=== PATIENT | female | born 1955 | race Caucasian/White ===

== ENCOUNTER 2018-01-30 17:45 | Observation (INO) ==
--- NOTE | 2018-01-30 18:19 | ED ---
HPI General Chief Complaint: Altered Mental Status Stated Complaint: Poss AMS Time Seen by Provider: 01/30/18 18:10 Source: EMS Mode of arrival: EMS Limitations: altered mental status History of Present Illness HPI narrative: 63-year-old female presents from rehab facility where she was found altered with an empty bottle of 0.5 mg of Ativan that was just filled on January 15. Patient nonverbal and can provide me with no history on initial examination. History is obtained from EMS and nursing staff Related Data Home Medications Medication Instructions Recorded Confirmed aspirin 81 mg PO DAILY 01/30/18 01/30/18 folic acid 1 mg PO DAILY 01/30/18 01/30/18 pantoprazole 40 mg PO DAILY 01/30/18 01/30/18 quetiapine [Seroquel] 100 mg PO HS 01/30/18 01/30/18 rifaximin [Xifaxan] 550 mg PO BID 01/30/18 01/30/18 sertraline 100 mg PO DAILY 01/30/18 01/30/18 Previous Rx's Medication Instructions Recorded losartan 50 mg PO DAILY #30 tab 02/02/18 tntyxikf-erar-EX-calcium-mins 1 tab PO DAILY #30 tab 02/02/18 [Thera M Plus (ferrous fumarat)] thiamine HCl (vitamin B1) 100 mg PO DAILY #30 tab 02/02/18 Allergies Allergy/AdvReac Type Severity Reaction Status Date / Time alprazolam [From Xanax] Allergy UNKNOWN Verified 01/30/18 18:11 pregabalin [From Lyrica] Allergy UNKNOWN Verified 01/30/18 18:11 Review of Systems ROS Unobtainable ROS Unobtainable: unobtainable due to mental status PMFSH History History Provided By: Patient (Unable to obtain any history) Social History Social History Substance History: No History of Abuse Second Hand Smoke Exposure: Yes Smoking Status: Current every day smoker Tobacco Type: Cigarettes How Often Do You Have a Drink Containing Alcohol: Unable to Obtain Recent Travel in [place] within the Last 8 Weeks: No Recent Out of Country Travel within the Last 8 Weeks: No Exam Narrative Exam Narrative: GENERAL: 63 y/o female who opens eyes SKIN: Focused skin assessment warm/dry. HEAD: Atraumatic. Normocephalic. EYES: Pupils equal and round. No scleral icterus. No injection or drainage. ENT: No nasal bleeding or discharge. Mucous membranes pink and moist. NECK: Trachea midline. CARDIOVASCULAR: Regular rate and rhythm. RESPIRATORY: No accessory muscle use. Clear to auscultation. Breath sounds equal bilaterally. GASTROINTESTINAL: Abdomen soft, nondistended. MUSCULOSKELETAL: No obvious deformities. No clubbing. No cyanosis. NEUROLOGICAL: Opens eyes to voice, initially unresponsive and foaming at the mouth, nonverbal Course Initial Documented Vital Signs Temperature 98 F 01/30/18 18:00 Pulse Rate 92 H 01/30/18 18:00 Respiratory Rate 18 01/30/18 18:00 Blood Pressure 232/100 H 01/30/18 18:00 Pulse Oximetry 92 L 01/30/18 18:00 Last Documented Vital Signs Temperature 98.3 F 02/02/18 08:00 Pulse Rate 71 02/02/18 08:00 Respiratory Rate 14 02/02/18 08:00 Blood Pressure 155/79 H 02/02/18 08:00 Pulse Oximetry 93 L 02/02/18 10:53 Sign Out Sign Out Data: Patient Sign Out occurred on 01/30/18 at 20:29. Patient's care was discussed, and care was transferred from Yulissa Rodriguez MD to Kesha Gonzalez. Sign Out Comment: follow workup and admit Last updated by Yulissa Rodriguez MD at 01/30/18 19:25 Post-Handoff Eval: 63-year-old female was brought to the emergency room by EMS from the longterm after she was found poorly responsive. There were 2 missing bottles of Lorazepam and tizanidine next to her bed. She was seen by the previous ER for for altered mental status. There was a witnessed seizure by the previous ER physician at approximately 6 PM at which 1 mg of Ativan was given. Signout was to follow-up on the blood test result and CAT scan and admission. Poison control was contacted and they recommended close monitoring. At 7 PM when I went to see the patient she was awake and sitting up but verbally she was not making much sense and not good train of thoughts. She was also having some ataxic movement of her face with grimacing. She recognized some objects that I showed to her and named them and was unable to recognize some of the others. There was some visual hallucinations including her saying that she could see some green fingers pointing at the television. Blood test results are back and she has some leukopenia but otherwise within normal limit. Patient does have a significant history of alcohol dependence with abstinence for past 9 days. My concern is DT versus Wernicke's encephalopathy. I have given her a dose of thiamine. I have ordered an MRI and an MRA of the brain. Patient will require admission. Awaiting for the hospitalist to call back. Medical Decision Making MDM Narrative Medical decision making narrative: Patient arrived unresponsive. But I stayed in the room with the patient she started to come around and stated her name but would not provide me any other history. Patient is still very confused and history is significantly limited. Currently protecting airway with eyes open and very limited speech. Medical Screen Exam Complete: Yes Emergency Medical Condition: Yes Differential Diagnosis Differential Diagnosis: Postictal, electrolyte abnormality, UTI, overdose Lab Data Result diagrams: 01/31/18 05:02 02/01/18 07:34 Lab Results 01/30/18 01/30/18 01/30/18 Range/Units 18:50 18:50 18:50 WBC 3.2 L (4.0-11.0) th/mm3 RBC 3.75 L (4.00-5.30) mil/mm3 Hgb 10.5 L (11.6-15.3) gm/dL Hct 31.1 L (35.0-46.0) % MCV 82.9 (80.0-100.0) fL MCH 28.1 (27.0-34.0) pg MCHC 33.8 (32.0-36.0) % RDW 15.8 (11.6-17.2) % Plt Count 55 L (150-450) th/mm3 MPV 8.7 (7.0-11.0) fL Prelim Diff (Auto) Slide review pending Neut % (Auto) 79.4 H (16.0-70.0) % Lymph % (Auto) 10.9 (9.0-44.0) % [place] % (Auto) 7.7 (0.0-8.0) % Eos % (Auto) 1.5 (0.0-4.0) % Baso % (Auto) 0.5 (0.0-2.0) % Neut # (Auto) 2.5 (1.8-7.7) th/mm3 Lymph # (Auto) 0.4 L (1.0-4.8) th/mm3 [place] # (Auto) 0.2 (0.0-0.9) th/mm3 Eos # (Auto) 0.0 (0.0-0.4) th/mm3 Baso # (Auto) 0.0 (0.0-0.2) th/mm3 WBC Differential . Diff Scan Auto diff confirmed Differential Comment . Platelet Estimate Low L (Normal) Platelet Morphology Normal (Normal) Ovalocytes 2+ H (None) PT 12.0 H (9.8-11.6) sec INR 1.2 Ratio APTT 26.1 (23.4-31.7) sec Sodium (136-145) meq/L Potassium (3.5-5.1) meq/L Chloride (98-107) meq/L Carbon Dioxide (21.0-32.0) meq/L Anion Gap (5-15) meq/L BUN (7-18) mg/dL Creatinine (0.50-1.00) mg/dL Estimated GFR (>89) mL/min POC Glucose (68-110) mg/dl Random Glucose (74-106) mg/dL Calcium (8.5-10.1) mg/dL Phosphorus (2.5-4.9) mg/dL Magnesium (1.5-2.5) mg/dL Total Bilirubin (0.2-1.0) mg/dL AST (15-37) U/L ALT (10-53) U/L Alkaline Phosphatase (45-117) U/L Ammonia (11-32) mcmol/L Total Creatine Kinase (26-192) U/L Troponin I (0.02-0.05) ng/mL Total Protein (6.4-8.2) g/dL Albumin (3.4-5.0) g/dL Salicylates (2.8-20.0) mg/dL Acetaminophen (10.0-30.0) mcg/mL Serum Alcohol Cancelled 01/30/18 01/30/18 01/30/18 Range/Units 18:50 18:50 18:50 WBC (4.0-11.0) th/mm3 RBC (4.00-5.30) mil/mm3 Hgb (11.6-15.3) gm/dL Hct (35.0-46.0) % MCV (80.0-100.0) fL MCH (27.0-34.0) pg MCHC (32.0-36.0) % RDW (11.6-17.2) % Plt Count (150-450) th/mm3 MPV (7.0-11.0) fL Prelim Diff (Auto) Neut % (Auto) (16.0-70.0) % Lymph % (Auto) (9.0-44.0) % [place] % (Auto) (0.0-8.0) % Eos % (Auto) (0.0-4.0) % Baso % (Auto) (0.0-2.0) % Neut # (Auto) (1.8-7.7) th/mm3 Lymph # (Auto) (1.0-4.8) th/mm3 [place] # (Auto) (0.0-0.9) th/mm3 Eos # (Auto) (0.0-0.4) th/mm3 Baso # (Auto) (0.0-0.2) th/mm3 WBC Differential Diff Scan Differential Comment Platelet Estimate (Normal) Platelet Morphology (Normal) Ovalocytes (None) PT (9.8-11.6) sec INR Ratio APTT (23.4-31.7) sec Sodium 141 (136-145) meq/L Potassium 3.2 L (3.5-5.1) meq/L Chloride 106 (98-107) meq/L Carbon Dioxide 26.0 (21.0-32.0) meq/L Anion Gap 9 (5-15) meq/L BUN 9 (7-18) mg/dL Creatinine 0.78 (0.50-1.00) mg/dL Estimated GFR 74 L (>89) mL/min POC Glucose (68-110) mg/dl Random Glucose 91 (74-106) mg/dL Calcium 8.6 (8.5-10.1) mg/dL Phosphorus (2.5-4.9) mg/dL Magnesium 1.7 (1.5-2.5) mg/dL Total Bilirubin 1.0 (0.2-1.0) mg/dL AST 41 H (15-37) U/L ALT 26 (10-53) U/L Alkaline Phosphatase 118 H (45-117) U/L Ammonia Less than 10 L (11-32) mcmol/L Total Creatine Kinase 117 (26-192) U/L Troponin I 0.03 (0.02-0.05) ng/mL Total Protein 7.1 (6.4-8.2) g/dL Albumin 3.5 (3.4-5.0) g/dL Salicylates (2.8-20.0) mg/dL Acetaminophen Less than 2.0 L Cancelled (10.0-30.0) mcg/mL Serum Alcohol Less than 3 01/30/18 01/31/18 01/31/18 Range/Units 18:50 05:02 05:02 WBC 6.1 D (4.0-11.0) th/mm3 RBC 3.91 L (4.00-5.30) mil/mm3 Hgb 10.9 L (11.6-15.3) gm/dL Hct 32.5 L (35.0-46.0) % MCV 83.3 (80.0-100.0) fL MCH 28.0 (27.0-34.0) pg MCHC 33.6 (32.0-36.0) % RDW 16.1 (11.6-17.2) % Plt Count 82 L D (150-450) th/mm3 MPV 8.4 (7.0-11.0) fL Prelim Diff (Auto) Slide review pending Neut % (Auto) 77.6 H (16.0-70.0) % Lymph % (Auto) 13.7 (9.0-44.0) % [place] % (Auto) 6.8 (0.0-8.0) % Eos % (Auto) 1.0 (0.0-4.0) % Baso % (Auto) 0.9 (0.0-2.0) % Neut # (Auto) 4.7 (1.8-7.7) th/mm3 Lymph # (Auto) 0.8 L (1.0-4.8) th/mm3 [place] # (Auto) 0.4 (0.0-0.9) th/mm3 Eos # (Auto) 0.1 (0.0-0.4) th/mm3 Baso # (Auto) 0.1 (0.0-0.2) th/mm3 WBC Differential . Diff Scan Auto diff confirmed Differential Comment . Platelet Estimate Low L (Normal) Platelet Morphology Normal (Normal) Ovalocytes 2+ H (None) PT (9.8-11.6) sec INR Ratio APTT (23.4-31.7) sec Sodium 139 (136-145) meq/L Potassium 3.3 L (3.5-5.1) meq/L Chloride 105 (98-107) meq/L Carbon Dioxide 24.8 (21.0-32.0) meq/L Anion Gap 9 (5-15) meq/L BUN 6 L (7-18) mg/dL Creatinine 0.66 (0.50-1.00) mg/dL Estimated GFR Greater than 89 (>89) mL/min POC Glucose (68-110) mg/dl Random Glucose 86 (74-106) mg/dL Calcium 8.5 (8.5-10.1) mg/dL Phosphorus (2.5-4.9) mg/dL Magnesium (1.5-2.5) mg/dL Total Bilirubin 1.0 (0.2-1.0) mg/dL AST 44 H (15-37) U/L ALT 27 (10-53) U/L Alkaline Phosphatase 120 H (45-117) U/L Ammonia (11-32) mcmol/L Total Creatine Kinase (26-192) U/L Troponin I (0.02-0.05) ng/mL Total Protein 7.3 (6.4-8.2) g/dL Albumin 3.6 (3.4-5.0) g/dL Salicylates Less than 1.7 L (2.8-20.0) mg/dL Acetaminophen (10.0-30.0) mcg/mL Serum Alcohol 01/31/18 01/31/18 02/01/18 Range/Units 06:40 16:44 07:34 WBC (4.0-11.0) th/mm3 RBC (4.00-5.30) mil/mm3 Hgb (11.6-15.3) gm/dL Hct (35.0-46.0) % MCV (80.0-100.0) fL MCH (27.0-34.0) pg MCHC (32.0-36.0) % RDW (11.6-17.2) % Plt Count (150-450) th/mm3 MPV (7.0-11.0) fL Prelim Diff (Auto) Neut % (Auto) (16.0-70.0) % Lymph % (Auto) (9.0-44.0) % [place] % (Auto) (0.0-8.0) % Eos % (Auto) (0.0-4.0) % Baso % (Auto) (0.0-2.0) % Neut # (Auto) (1.8-7.7) th/mm3 Lymph # (Auto) (1.0-4.8) th/mm3 [place] # (Auto) (0.0-0.9) th/mm3 Eos # (Auto) (0.0-0.4) th/mm3 Baso # (Auto) (0.0-0.2) th/mm3 WBC Differential Diff Scan Differential Comment Platelet Estimate (Normal) Platelet Morphology (Normal) Ovalocytes (None) PT (9.8-11.6) sec INR Ratio APTT (23.4-31.7) sec Sodium 141 (136-145) meq/L Potassium 3.3 L (3.5-5.1) meq/L Chloride 105 (98-107) meq/L Carbon Dioxide 25.1 (21.0-32.0) meq/L Anion Gap 11 (5-15) meq/L BUN 8 (7-18) mg/dL Creatinine 0.68 (0.50-1.00) mg/dL Estimated GFR 87 L (>89) mL/min POC Glucose 88 114 H (68-110) mg/dl Random Glucose 86 (74-106) mg/dL Calcium 9.1 (8.5-10.1) mg/dL Phosphorus 3.2 (2.5-4.9) mg/dL Magnesium 2.0 (1.5-2.5) mg/dL Total Bilirubin (0.2-1.0) mg/dL AST (15-37) U/L ALT (10-53) U/L Alkaline Phosphatase (45-117) U/L Ammonia (11-32) mcmol/L Total Creatine Kinase (26-192) U/L Troponin I (0.02-0.05) ng/mL Total Protein (6.4-8.2) g/dL Albumin (3.4-5.0) g/dL Salicylates (2.8-20.0) mg/dL Acetaminophen (10.0-30.0) mcg/mL Serum Alcohol Imaging Data Radiologist's impression: Head CTA 01/30/18 00:00 CONCLUSION: 1. Negative CTA Head. In particular, no anterior communicating artery aneurysm as questioned on the MRI. . Chest X-Ray 01/30/18 18:10 CONCLUSION: No evidence of acute cardiopulmonary disease. Head CT 01/30/18 18:10 CONCLUSION: Negative noncontrast head CT. . Head MRI 01/30/18 19:38 CONCLUSION: 1. No bleed, infarct or other acute intracranial abnormality. 2. Very mild chronic white matter changes. Head MRA 01/30/18 19:38 CONCLUSION: 1. No thrombosis or significant stenotic disease. 2. Mild intracranial atherosclerosis. 3. 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 No bleed demonstrated on the head CT or MRI done earlier tonight. Nonemergent CT angiogram of the head suggested if felt clinically indicated. Discharge Plan Discharge Disposition Patient Disposition: 30 Still Patient Discharge Condition Condition: Stable Discharge Order Discharge Orders: Discharge Order (Routine); Ordered 02/02/18 Ordered By: Isabelle Mcclellan Discharge Details Anticipated Discharge Date: 02/02/18 Physicians Team ED Provider: Kesha Gonzalez Primary Care Provider: UNKNOWN, Attending Provider: Isabelle Mcclellan Other Providers: Sai Camacho ; [facility],Insurance ; [facility] Status ED Status: Left Department Discharge Information Discharge Date/Time: 01/31/18 05:26
--- NOTE | 2018-01-30 18:54 | CT ---
EXAM DATE: 01/30/2018 6:50 PM EST AGE/SEX: 63 years / Female INDICATIONS: Altered mental status. CLINICAL DATA: This is the patient's initial encounter. Patient reports that signs and symptoms have been present for 1 day and indicates a pain score of Nonresponsive. MEDICAL/SURGICAL HISTORY: Non-responsive. Non-responsive. RADIATION DOSE: 28.48 CTDI (mGy) COMPARISON: No prior exams available for comparison. TECHNIQUE: CT of the head without contrast. Using automated exposure control and adjustment of the mA and/or kV according to patient size, radiation dose was kept as low as reasonably achievable to ob tain optimal diagnostic quality images. DICOM format image data is available electronically for revi ew and comparison. FINDINGS: Cerebrum: The ventricles are normal for age. No evidence of midline shift, mass lesion, hemorrhage or acute infarction. No extraaxial fluid collections are seen. Posterior Fossa: The cerebellum and brainstem are intact. The 4th ventricle is midline. The cerebe llopontine angle is unremarkable. Extracranial: The visualized portion of the orbits is intact. Skull: The calvaria is intact. No evidence of skull fracture. CONCLUSION: Negative noncontrast head CT. . Electronically signed by: Shashi Cho MD 01/30/2018 6:52 PM EST
--- NOTE | 2018-01-30 19:00 | XR ---
EXAM DATE: 01/30/2018 6:57 PM EST AGE/SEX: 63 years / Female INDICATIONS: Chest pain. Palpitations. CLINICAL DATA: This is the patient's initial encounter. Patient reports that signs and symptoms have been present for 1 day and indicates a pain score of 2/10. MEDICAL/SURGICAL HISTORY: Hypertension. Rheumatoid arthritis. Hepatitis C. Smoker. Acute kid melo failure. Cirrhosis. Fibromyalgia. . Right shoulder replacement. COMPARISON: [facility], XR CHEST PA AND LAT, 11/01/2014. . FINDINGS: A single AP view of the chest demonstrates the lungs to be symmetrically aerated without evidence of mass, infiltrate or effusion. The cardiomediastinal contours are unremarkable. Osseous structures a re intact. CONCLUSION: No evidence of acute cardiopulmonary disease. Electronically signed by: Shashi Cho MD 01/30/2018 6:58 PM EST
[2018-01-30 19:34] LABS: Baso % (Auto) 0.5 % (0.0-2.0); Eos % (Auto) 1.5 % (0.0-4.0); Hematocrit 31.1 % (35.0-46.0); Hemoglobin 10.5 gm/dL (11.6-15.3); Lymph # (Auto) 0.4 th/mm3 (1.0-4.8); Lymph % (Auto) 10.9 % (9.0-44.0); Mean Corpuscular HGB Conc 33.8 % (32.0-36.0); Mean Corpuscular Hemoglobin 28.1 pg (27.0-34.0); Mean Corpuscular Volume 82.9 fL (80.0-100.0); Mean Platelet Volume 8.7 fL (7.0-11.0); Mono # (Auto) 0.2 th/mm3 (0.0-0.9); Mono % (Auto) 7.7 % (0.0-8.0); Neut # (Auto) 2.5 th/mm3 (1.8-7.7); Neut % (Auto) 79.4 % (16.0-70.0); Platelet Count 55 th/mm3 (150-450); Red Blood Count 3.75 mil/mm3 (4.00-5.30); Red Cell Distribution Width 15.8 % (11.6-17.2); White Blood Count 3.2 th/mm3 (4.0-11.0)
[2018-01-30 19:46] LABS: Albumin 3.5 g/dL (3.4-5.0); Anion Gap 9 meq/L (5-15); Aspartate Aminotransferase 41 U/L (15-37); Blood Urea Nitrogen 9 mg/dL (7-18); Calcium 8.6 mg/dL (8.5-10.1); Chloride 106 meq/L (98-107); Glomerular Filtration Rate 74 mL/min (>89); Glucose,Random 91 mg/dL (74-106); Magnesium 1.7 mg/dL (1.5-2.5); Potassium 3.2 meq/L (3.5-5.1); Sodium 141 meq/L (136-145)
[2018-01-30 19:47] LABS: Activated Partial Thrombo Time 26.1 sec (23.4-31.7); INR 1.2 Ratio
[2018-01-30 19:50] LABS: Alanine Aminotransferase 26 U/L (10-53); Alkaline Phosphatase 118 U/L (45-117); Creatine Kinase 117 U/L (26-192); Total Protein 7.1 g/dL (6.4-8.2); Troponin I 0.03 ng/mL (0.02-0.05)
[2018-01-30 20:29] LABS: Ovalocytes 2+; Platelet Morphology Normal (Normal)
[2018-01-30] MEDS ORDERED: Thiamine Inj 100 MG in Sodium Chlor 0.9% Inj 100 ML IV.SIG ONE (20:32)
[2018-01-30] MEDS ORDERED: Gadobutrol PF 7.5 MMOL/7.5 ML Vial (for RAD) IV.SIG ONE (20:48)
[2018-01-30] MEDS ORDERED: LORazepam 1 MG Tablet PO PRN (20:57)
[2018-01-30] MEDS ORDERED: Haloperidol Inj 5 MG/ML Ampul IV.PUSH PRN (20:57)
[2018-01-30] MEDS ORDERED: Bisacodyl 10 MG Supp RECTAL PRN (20:58)
[2018-01-30] MEDS ORDERED: Acetaminophen 325 MG Tablet PO PRN (20:58)
[2018-01-30] MEDS ORDERED: Sod Chloride 0.9% Inj 1,000 ML IV.CONT SCH (21:00)
--- NOTE | 2018-01-30 21:00 | P.HPIM ---
History of Present Illness Primary Care Physician: UNKNOWN History of Present Illness: This is a 63-year-old female with a PMH of Anxiety, Depression, Hepatitis C, Alcohol Abuse, Cirrhosis, HTN, Fibromyalgia, Rheumatoid Arthritis, Polyneuropathy and Tobacco Abuse who was brought to the ER by EMS from [facility] for AMS. Pt unable to provide any history as she is currently non-verbal , unclear if this is her baseline but appears new. Per EMS, pt is a new resident of [facility], was found w/ 2 bottles at bedside, empty bottle of Tizanidine 4mg filled 12/05/17 and bottle of Ativan 0.5mg #60 filled 01/15/18 w/ 2 pills remaining. Pt w/ known h/o Alcohol Abuse, apparently stopped drinking 9 days ago. While in ER had seizure x1. Currently awake and alert, but non- verbal. On exam pt w/ significant repetitive movements/dystonia. On arrival, BP 232/100, HR 92, O2 sat 92% on RA, Afebrile. W BC 3.2, hemoglobin 10.5, platelets 55. INR 1.2. Chemistry essentially unremarkable. Ammonia less than 10. Salicylates negative. Tylenol negative. Alcohol negative. CT Head negative. CXR w/ no acute findings. Poison Control contacted, recommended observation. MRI/MRA ordered in ER, currently pending. While in ER, pt was briefly answering few questions, and noted to have visual hallucinations-seeing green fingers on the TV. - Diagnosis (1) Encephalopathy (2) Seizure (3) Alcohol abuse (4) Pancytopenia (5) HTN (hypertension) Review of Systems PAST FAMILY HISTORY: Unknown All other systems reviewed negative except as stated in HPI PMFSH - History History Provided By: Patient (Unable to obtain any history) - Medical History Medical History: Medical History (Last Updated 01/30/18 @ 18:24 by Mari Parks RN) Acute kidney failure, unspecified Alcohol abuse Anxiety disorder Cirrhosis of liver Essential hypertension Fibromyalgia Gastro-esophageal reflux Generalized weakness Hx of fall Hx of urinary tract infection Lack of coordination Major depressive disorder Polyneuropathy Rheumatoid arthritis Syncope and collapse Tobacco use Unspecified convulsions Unsteadiness on feet Viral hepatitis C - Surgical History Surgical History: Surgical History (Last Updated 01/30/18 @ 18:24 by Mari Parks RN) Presence of right artificial shoulder joint - Tobacco History Second Hand Smoke Exposure: (UNABLE TO ASSESS) Tobacco Use In Past 30 Days: (UNABLE TO ASSESS) Smoking Status: Unknown if ever smoked - Alcohol History How Often Do You Have a Drink Containing Alcohol: Unable to Obtain - Travel History Recent Travel in the [place] Within the Last 8 Weeks: No Recent Travel Out of the Country Within the Last 8 Weeks: No - Immunization History Tetanus Immunization: Unable to Assess Medications and Allergies Active Medications: Active Medications Thiamine HCl 100 mg/ Sodium (Chloride) 101 mls @ 100 mls/hr IV.SIG ONCE ONE Stop: 01/30/18 21:32 Sodium Chloride (Ns Flush) 2 ml IV.FLUSH PRN PRN PRN Reason: FLUSH AFTER USING IV ACCESS Allergies Allergy/AdvReac Type Severity Reaction Status Date / Time alprazolam [From Xanax] Allergy UNKNOWN Verified 01/30/18 18:11 pregabalin [From Lyrica] Allergy UNKNOWN Verified 01/30/18 18:11 Home Medications Medication Instructions Recorded Confirmed Type acetaminophen-codeine 1 tab PO Q8H PRN 01/30/18 01/30/18 History aspirin 81 mg PO DAILY 01/30/18 01/30/18 History folic acid 1 mg PO DAILY 01/30/18 01/30/18 History pantoprazole 40 mg PO DAILY 01/30/18 01/30/18 History quetiapine [Seroquel] 100 mg PO HS 01/30/18 01/30/18 History rifaximin [Xifaxan] 550 mg PO BID 01/30/18 01/30/18 History sertraline 100 mg PO DAILY 01/30/18 01/30/18 History Exam Vital signs: Vital Signs 01/30/18 18:00 01/30/18 18:27 01/30/18 18:30 Temperature 98 F Pulse Rate 92 H 95 H Respiratory Rate 18 16 Blood Pressure 232/100 H 214/100 H Pulse Oximetry 92 L 95 95 01/30/18 19:35 Temperature Pulse Rate 90 Respiratory Rate 18 Blood Pressure 193/86 H Pulse Oximetry 93 L Intake & Output 01/30/18 01/30/18 01/31/18 06:59 18:59 06:59 Weight 65.771 kg Narrative: PE: GENERAL: Middle-aged white female in no acute distress. Awake and alert but non- verbal, opens mouth to try to speak but no words. +dystonia, +grimacing, + involuntary jerking movement. SKIN: Focused skin assessment warm and dry. HEENT: PERRLA, EOMI. No scleral icterus or conjunctival pallor. No lid lag or facial droop. CARDIOVASCULAR: Regular rate and rhythm. No obvious murmurs to auscultation. No chest tenderness to palpation. RESPIRATORY: No obvious rhonchi or wheezing. Clear to auscultation. Breath sounds equal bilaterally. GASTROINTESTINAL: Abdomen soft, non-tender, nondistended. BS normal. MUSCULOSKELETAL: Extremities without clubbing, cyanosis, or edema. No obvious deformities. NEUROLOGICAL: Awake, alert. No focal neurologic deficits. Moving both upper and lower extremities spontaneously. PSYCHIATRIC: Appropriate mood and affect. Insight and judgment normal. Results - Labs CBC & Chem 7: 01/30/18 18:50 01/30/18 18:50 Labs: Short CBC 01/30/18 Range/Units 18:50 WBC 3.2 L (4.0-11.0) th/mm3 Hgb 10.5 L (11.6-15.3) gm/dL Hct 31.1 L (35.0-46.0) % Plt Count 55 L (150-450) th/mm3 BMP 01/30/18 18:50 Sodium 141 Potassium 3.2 L Chloride 106 Carbon Dioxide 26.0 BUN 9 Creatinine 0.78 Calcium 8.6 Cardiac Enzymes 01/30/18 Range/Units 18:50 Total Creatine Kinase 117 (26-192) U/L Troponin I 0.03 (0.02-0.05) ng/mL Liver Function 01/30/18 Range/Units 18:50 Total Bilirubin 1.0 (0.2-1.0) mg/dL AST 41 H (15-37) U/L ALT 26 (10-53) U/L Alkaline Phosphatase 118 H (45-117) U/L Albumin 3.5 (3.4-5.0) g/dL - Imaging Impressions Chest X-Ray 01/30/18 18:10 CONCLUSION: No evidence of acute cardiopulmonary disease. Head CT 01/30/18 18:10 CONCLUSION: Negative noncontrast head CT. . Caprini VTE Risk Assessment Caprini VTE Risk Assessment: No/Low Risk (score <= 1) Caprini Risk Assessment Model: Point Value = 1 Point Value = 2 Point Value = 3 Point Value = 5 Age 41-60 Minor surgery BMI > 25 kg/m2 Swollen legs Varicose veins or History of unexplained or recurrent spontaneous Oral contraceptives or hormone replacement Sepsis (< 1 month) Serious lung disease, including pneumonia (< 1 month) Abnormal pulmonary function Acute myocardial infarction Congestive heart failure (< 1 month) History of inflammatory bowel disease Medical patient at bed rest Age 61-74 Arthroscopic surgery Major open surgery (> 45 min) Laparoscopic surgery (> 45 min) Malignancy Confined to bed (> 72 hours) Immobilizing plaster cast Central venous access Age >= 75 History of VTE Family history of VTE Factor V Leiden Prothrombin [id number] Lupus anticoagulant Anticardiolipin antibodies Elevated serum homocysteine Heparin-induced thrombocytopenia Other congenital or acquired thrombophilia Stroke (< 1 month) Elective arthroplasty Hip, pelvis, or leg fracture Acute spinal cord injury (< 1 month) Prophylaxis Regimen: Total Risk Factor Score Risk Level Prophylaxis Regimen 0-1 Low Early ambulation 2 Moderate Order ONE of the following: *Sequential Compression Device (SCD) *Heparin 5000 units SQ BID 3-4 Higher Order ONE of the following medications: *Heparin 5000 units SQ TID *Enoxaparin/Lovenox 40 mg SQ daily (WT < 150 kg, CrCl > 30 mL/min) *Enoxaparin/Lovenox 30 mg SQ daily (WT < 150 kg, CrCl > 10-29 mL/min) *Enoxaparin/Lovenox 30 mg SQ BID (WT < 150 kg, CrCl > 30 mL/min) AND/OR *Sequential Compression Device (SCD) 5 or more Highest Order ONE of the following medications: *Heparin 5000 units SQ TID (Preferred with Epidurals) *Enoxaparin/Lovenox 40 mg SQ daily (WT < 150 kg, CrCl > 30 mL/min) *Enoxaparin/Lovenox 30 mg SQ daily (WT < 150 kg, CrCl > 10-29 mL/min) *Enoxaparin/Lovenox 30 mg SQ BID (WT < 150 kg, CrCl > 30 mL/min) AND *Sequential Compression Device (SCD) Assessment and Plan - Assessment (1) Encephalopathy Code(s): G93.40 - Encephalopathy, unspecified Status: Acute (2) Seizure Code(s): R56.9 - Unspecified convulsions Status: Acute (3) Alcohol abuse Code(s): F10.10 - Alcohol abuse, uncomplicated Status: Acute (4) Pancytopenia Code(s): D61.818 - Other pancytopenia Status: Acute (5) HTN (hypertension) Code(s): I10 - Essential (primary) hypertension Status: Acute - Plan A/P: 1. Encephalopathy: unclear etiology, likely combination of medications, alcohol cessation/withdrawal and possible EPS. CT Head w/ no acute findings, images reviewed. MRI/MRA ordered, currently pending, will follow up. Admit for Observation, Neuro Checks, consult Neurology for further eval/ recommendations. Found w/ empty bottle of Tizanidine 4mg and Ativan 0.5mg, unclear if or how much she may have taken, telemetry, pending Urine Drug Screen. +visual hallucinations and involuntary jerking movements while in ER, concern for withdrawal/DTs. CIWA. Poison Control contacted. 2. Seizure: x1 while in ER, no h/o seizure per report, Neuro Checks, Seizure Precautions, Check EEG, Consult Neurology as above, Ativan prn. 3. Alcohol Abuse: w/ recent cessation x9 days per report, ? withdrawal symptoms, CIWA, Seizure Precautions, MVT/Thiamine/Folate replacement. 4. Pancytopenia: WBC 3.2, Hgb 10.5, Platelets 55, previously WBC 6.7, Hgb 12.5 and Platelets 142 on 08/12/15. Will monitor closely, repeat labs in am, consult Hematology if no improvement. 5. HTN: Uncontrolled, BP 232/100, HR 92, monitor BP, antihypertensives as needed for BP >180 6. DVT Prophylaxis: SCD/Teds 7. Social work for d/c planning as needed. 8. Case discussed w/ ER physician at length, labs/records/imaging reviewed by me.
--- NOTE | 2018-01-30 21:11 | ECG ---
Date Performed: 01/30/2018 Time Performed: 18:22:39 PTAGE: 63 years EKG: Baseline artifact present Sinus rhythm POSSIBLE LEFT ATRIAL ENLARGEMENT NONSPECIFIC T-WAVE ABNORMALITY BORDERLINE ECG NO PREVIOUS TRACING DOCTOR: Gerardo Khan Interpretating Date/Time 01/30/2018 21:10:03
--- NOTE | 2018-01-30 21:13 | MR ---
EXAM DATE: 01/30/2018 9:05 PM EST AGE/SEX: 63 years / Female INDICATIONS: Altered mental status. CLINICAL DATA: This is the patient's initial encounter. Patient reports that signs and symptoms have been present for 1 day and indicates a pain score of 0/10. MEDICAL/SURGICAL HISTORY: . Unknown. . Right shoulder replacement. COMPARISON: [facility] – [place], [place] HEAD W/O CONTRAST, 01/30/2018. . TECHNIQUE: Multiplanar, multisequence examination of the brain was performed without and with 6 ml Ga davist (gadobutrol) contrast as a single exam dose. FINDINGS: Cerebrum: The ventricles are normal for age. No evidence of midline shift, mass lesion, hemorrhage or acute infarction. No extraaxial fluid collections are seen. The pituitary gland and suprasellar cistern are normal in configuration. White Matter: Very mild scattered chronic FLAIR signal abnormality seen in the white matter of both cerebral hemispheres. Posterior Fossa: The cerebellum and brainstem are intact. The 4th ventricle is midline. The cerebel lopontine angle is unremarkable. The cerebellar tonsils are normal in position. Diffusion Imaging: No focal areas of restricted diffusion are seen. No evidence of acute infarction . Extracranial: The visualized portions of the orbits and paranasal sinuses are unremarkable. Post Contrast: No abnormal areas of parenchymal or dural enhancement. No evidence of blood-brain ba rrier breakdown. CONCLUSION: 1. No bleed, infarct or other acute intracranial abnormality. 2. Very mild chronic white matter changes. Electronically signed by: Shashi Cho MD 01/30/2018 9:12 PM EST
--- NOTE | 2018-01-30 21:22 | MR ---
EXAM DATE: 01/30/2018 9:07 PM EST AGE/SEX: 63 years / Female INDICATIONS: Altered mental status. CLINICAL DATA: This is the patient's initial encounter. Patient reports that signs and symptoms have been present for 1 day and indicates a pain score of 0/10. MEDICAL/SURGICAL HISTORY: . Unknown. . Right shoulder replacement. COMPARISON: [facility] – [place], [place] HEAD W/O CONTRAST, 01/30/2018. [facility] – [place], MR HEAD W & W/O CONTRAST, 01/30/2018. . TECHNIQUE: 3D [id number] MRA was performed. Source images, multiplanar STS MIP, and 3D volum e MIP reconstructions were reviewed. FINDINGS: Mild generalized luminal irregularity seen typical intracranial atherosclerosis. No associated stenos is demonstrated. No acute vessel thrombus seen. There is a suspected 4 mm aneurysm of the anterior communicating artery. No other evidence of aneurys m. CONCLUSION: 1. No thrombosis or significant stenotic disease. 2. Mild intracranial atherosclerosis. 3. 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 No bleed demonstrated on the head CT or MRI done earlier tonight. Nonemergent CT angiogram of the head suggested if felt clinically indicated. Electronically signed by: Shashi Cho MD 01/30/2018 9:20 PM EST
[2018-01-30] MEDS: Senna/Docusate Sodium 8.6/50 MG Tablet PO SCH (22:47)
[2018-01-30] MEDS ORDERED: Metoprolol Inj 5 MG/5 ML Vial IV.PUSH ONE (22:50)
--- NOTE | 2018-01-31 00:24 | CT ---
EXAM DATE: 01/31/2018 12:15 AM EST AGE/SEX: 63 years / Female INDICATIONS: Aneurysm; abnormal MRI CLINICAL DATA: This is the patient's initial encounter. Patient reports that signs and symptoms have been present for 1 day and indicates a pain score of Nonresponsive. MEDICAL/SURGICAL HISTORY: Cirrhosis. Hypertension. Hepatitis C. ETOH abuse, kidney failure, RA . Right shoulder replacement RADIATION DOSE: 14.32 CTDI (mGy) COMPARISON: [facility], MRA HEAD W/O CONTRAST, 01/30/2018. . TECHNIQUE: Volumetric scanning was performed using a multi-row detector CT scanner during bolus infu rainer of 79 ml Omnipaque 350 (iohexol) nonionic water-soluble contrast as a single exam dose. The d demetrio was post processed with a variety of visualization algorithms including full volume maximum inten sity projection, multi-planar sliding thin slab reformation, curved planar reformation, and surface r endering techniques. Using automated exposure control and adjustment of the mA and/or kV according t o patient size, radiation dose was kept as low as reasonably achievable to obtain optimal diagnostic quality images. DICOM format image data is available electronically for review and comparison. FINDINGS: There is excellent visualization of the major intracranial arteries out to the second-order branch ve ssels. There is no evidence for aneurysm, vessel truncation or stenosis, and no evidence for vascula r malformation. Atherosclerotic calcifications involving the intracavernous ICAs bilaterally without significant narrowing. No anterior to indicating artery aneurysm. CONCLUSION: 1. Negative CTA Head. In particular, no anterior communicating artery aneurysm as questioned on the MRI. . Electronically signed by: Jim Fleming MD 01/31/2018 12:23 AM EST
[2018-01-31] MEDS ORDERED: hydrALAZINE HCl Inj 20 MG/ML Vial IV.PUSH ONE ×2 (03:42→04:00)
[2018-01-31] MEDS ORDERED: Metoprolol Inj 5 MG/5 ML Vial IV.PUSH ONE (03:42)
[2018-01-31 05:19] LABS: Baso # (Auto) 0.1 th/mm3 (0.0-0.2); Baso % (Auto) 0.9 % (0.0-2.0); Eos # (Auto) 0.1 th/mm3 (0.0-0.4); Hematocrit 32.5 % (35.0-46.0); Hemoglobin 10.9 gm/dL (11.6-15.3); Lymph # (Auto) 0.8 th/mm3 (1.0-4.8); Lymph % (Auto) 13.7 % (9.0-44.0); Mean Corpuscular HGB Conc 33.6 % (32.0-36.0); Mean Corpuscular Volume 83.3 fL (80.0-100.0); Mean Platelet Volume 8.4 fL (7.0-11.0); Mono # (Auto) 0.4 th/mm3 (0.0-0.9); Mono % (Auto) 6.8 % (0.0-8.0); Neut # (Auto) 4.7 th/mm3 (1.8-7.7); Neut % (Auto) 77.6 % (16.0-70.0); Platelet Count 82 th/mm3 (150-450); Red Blood Count 3.91 mil/mm3 (4.00-5.30); Red Cell Distribution Width 16.1 % (11.6-17.2); White Blood Count 6.1 th/mm3 (4.0-11.0)
[2018-01-31 05:49] LABS: Albumin 3.6 g/dL (3.4-5.0); Anion Gap 9 meq/L (5-15); Aspartate Aminotransferase 44 U/L (15-37); Blood Urea Nitrogen 6 mg/dL (7-18); Calcium 8.5 mg/dL (8.5-10.1); Carbon Dioxide 24.8 meq/L (21.0-32.0); Chloride 105 meq/L (98-107); Glomerular Filtration Rate Greater Than 89 mL/min (>89); Glucose,Random 86 mg/dL (74-106); Potassium 3.3 meq/L (3.5-5.1); Sodium 139 meq/L (136-145)
[2018-01-31 05:54] LABS: Alanine Aminotransferase 27 U/L (10-53); Alkaline Phosphatase 120 U/L (45-117); Total Protein 7.3 g/dL (6.4-8.2)
[2018-01-31 05:59] LABS: Ovalocytes 2+; Platelet Morphology Normal (Normal)
[2018-01-31] MEDS: Multivitamin/Minerals Therapeutic Tablet PO SCH (09:22)
[2018-01-31] MEDS: Senna/Docusate Sodium 8.6/50 MG Tablet PO SCH ×2 (09:22→20:23)
[2018-01-31] MEDS: Folic Acid 1 MG Tablet PO SCH (09:22)
[2018-01-31] MEDS ORDERED: hydroCHLOROthiazide 25 MG Tablet PO SCH (09:30)
--- NOTE | 2018-01-31 10:26 | P.PNIM ---
Subjective Interval history: patient has no complaints this morning. she does not know what happened to her yesterday, says she did not take any medication except 1 tablet of Tylenol with Codeine. She says she takes Losartan for blood pressure but not sure of dose, also Tizanidine, Seroquel, Xifaxan. she says he has a list in her phone which she is unable to access right now. Physical Exam Vital signs: Last Vital Signs Temp 98.2 F 01/31/18 08:00 Pulse 73 01/31/18 08:00 Resp 18 01/31/18 08:00 BP 167/94 H 01/31/18 08:00 Pulse Ox 94 L 01/31/18 08:00 Intake & Output 01/29/18 01/30/18 01/31/18 02/01/18 06:59 06:59 06:59 06:59 Intake Total 624 / 624 0 / 0 Balance 624 / 624 0 / 0 Weight 73.5 kg Narrative: PE: GENERAL: Middle-aged white female in no acute distress. Awake and alert HEENT:not pale,anicteric,moist oral mucous membranes, PERRLA, EOMI.no nystagmus CARDIOVASCULAR: Regular rate and rhythm. No murmurs or rubs. RESPIRATORY: No obvious rhonchi or wheezing. Clear to auscultation. Breath sounds equal bilaterally. GASTROINTESTINAL: Abdomen soft, non-tender, nondistended. BS normal. MUSCULOSKELETAL: Extremities without clubbing, cyanosis, or edema. No obvious deformities. NEUROLOGICAL: Awake, alert,oriented to person,place(knows she is at [place], knows state), time-knows month,year, veterans day. No focal neurologic deficits. Moving both upper and lower extremities spontaneously, strength 5/5. no disdiadokinesia. SKIN: Focused skin assessment warm and dry. livedo reticularis noted on lower extremities bilaterally. PSYCHIATRIC: Appropriate mood and affect. Insight and judgment normal. Results Labs CBC & Chem 7: 01/31/18 05:02 01/31/18 05:02 Imaging Imaging: Impressions Head CTA 01/30/18 00:00 CONCLUSION: 1. Negative CTA Head. In particular, no anterior communicating artery aneurysm as questioned on the MRI. . Chest X-Ray 01/30/18 18:10 CONCLUSION: No evidence of acute cardiopulmonary disease. Head CT 01/30/18 18:10 CONCLUSION: Negative noncontrast head CT. . Head MRI 01/30/18 19:38 CONCLUSION: 1. No bleed, infarct or other acute intracranial abnormality. 2. Very mild chronic white matter changes. Head MRA 01/30/18 19:38 CONCLUSION: 1. No thrombosis or significant stenotic disease. 2. Mild intracranial atherosclerosis. 3. 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 No bleed demonstrated on the head CT or MRI done earlier tonight. Nonemergent CT angiogram of the head suggested if felt clinically indicated. Assessment and Plan (1) Encephalopathy: Code(s): G93.40 - Encephalopathy, unspecified Status: Acute (2) Seizure: Code(s): R56.9 - Unspecified convulsions Status: Acute (3) Alcohol abuse: Code(s): F10.10 - Alcohol abuse, uncomplicated Status: Acute (4) Pancytopenia: Code(s): D61.818 - Other pancytopenia Status: Acute (5) HTN (hypertension): Code(s): I10 - Essential (primary) hypertension Status: Acute Plan 1. Encephalopathy: most likely related to alcohol withdrawal seizure and was likely in post ictal state on arrival. Also systolic BP was in the 230's range which could have triggered encephalopathy. Had visual hallucinations and involuntary jerking movements on arrival to ER, these have resolved. Patient is lucid this morning and says the only medication she took for pain yesterday was Tylenol with codeine. When asked about the 2 empty bottles, says she did not take Tizanidine or Ativan, but this will need to be confirmed. CT and MRI brain are negative for acute problems. 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 -send urine drug screen. 2. Seizure: x1 while in ER, no h/o seizure per report. Likely in the setting of alcohol withdrawal vs HTN encephalopathy. Neuro Checks, Seizure Precautions, Check EEG, Consult Neurology as above, Ativan prn. 3. Alcohol Abuse: w/ recent cessation x9 days per report, likely withdrawal symptoms, CIWA, Seizure Precautions, MVT/Thiamine/Folate replacement. 4. Pancytopenia: WBC 3.2, Hgb 10.5, Platelets 55, previously WBC 6.7, Hgb 12.5 and Platelets 142 on 08/12/15.--likely due to liver cirrhosis. monitor. 5. HTN:Uncontrolled, BP 232/100, HR 92, on admission may have been related to withdrawal. Patient reports being on Losartan but not clear of dose, will resume at 50mg daily until dose is confirmed. change diet to cardiac 2gm sodium. Hypokalemia--replete PO. Check mag and phosphate levels. DVT Prophylaxis: SCD/Teds Social work for d/c planning as needed. Progress Note: Quality VTE Deep Vein Thrombosis/Pulmonary Embolism Present on Admission: No _ (1) HTN (hypertension) Qualifiers: Hypertension type:
--- NOTE | 2018-01-31 18:28 | MB ---
cc: Sai Camacho MD, PhD DATE: 01/31/2018 REASON FOR CONSULTATION: Alteration in mental status. HISTORY OF PRESENT ILLNESS: Ms. Chinchilla is a 63-year-old woman who is a resident of rehabilitation facility at [facility]. She developed alteration in mental status with confusion. She was found to have an empty bottle of Ativan that was filled on 01/15/2018 with 60 pills with only 2 pills remaining, and also tizanidine. In the emergency room, she did have a seizure x 1. She denies any prior history of seizures. She states in the past she had trouble with alcohol abuse, but none for several years. Denies headaches, fevers or chills. PAST MEDICAL HISTORY: There is a history of hepatitis C, depression, anxiety, alcohol abuse, cirrhosis, hypertension, fibromyalgia, rheumatoid arthritis, neuropathy. CURRENT MEDICATIONS: 1. Tylenol. 2. Milk of magnesia. 3. Dulcolax. 4. Folic acid. 5. Lactulose. 6. Ativan p.r.n. 7. Cozaar 50 mg daily. 8. Zofran p.r.n. 9. K-Dur. 10. Senokot. 11. Vitamin B1. 12. Thiamine 100 mg p.o. daily. NEUROLOGICAL EXAMINATION: VITAL SIGNS: Blood pressure is 137/67, pulse 79, respirations 18, temperature 98 degrees. HIGHER CORTICAL FUNCTION: She is alert and oriented x 3. She recalls 0 of 3 objects in 3 minutes. Remote memory is normal. She can name objects normally. Calculations are intact. She follows commands only. Speech is fluent. Cranial nerves 2-12 are normal. Motor exam is 5/5 strength in all groups. There is no drift. Fine motor skills normal. Reflexes are symmetric. IMAGING STUDIES: CT brain is within normal limits for age. MRI brain: No acute change identified. No evidence of acute stroke. There are minimal chronic white matter changes present. MRA brain is negative for any significant stenosis. CTA head is negative. LABORATORY DATA: White count 6100, hemoglobin 10.9, hematocrit 32.5%, platelet count 82,000. PT 12, INR 1.2, APTT 26.1. Sodium is 139, potassium 2.3, chloride 105, CO2 24.8, BUN is 6, creatinine 0.66. GFR is greater than 89, glucose is 88, calcium 8.5, AST 44, ALT 27, alkaline phosphatase 120. Tox screen: Alcohol less than 3. IMPRESSION: Encephalopathy, probably related to benzodiazepines and muscle relaxer. Seizure may be related as well. There is a history of alcohol abuse, but she denies alcohol for a number of years. No evidence of any acute change on the MRI. RECOMMENDATIONS: We will obtain an electroencephalogram for further evaluation. Continue the thiamine. I would not recommend any anticonvulsants, unless the EEG were positive for epileptiform discharges. Sai Camacho MD, PhD EB/jeannette , 05:03 PM , 05:09 PM
[2018-02-01] MEDS: Senna/Docusate Sodium 8.6/50 MG Tablet PO SCH ×2 (08:14→20:55)
[2018-02-01] MEDS: Folic Acid 1 MG Tablet PO SCH (08:14)
[2018-02-01] MEDS: Multivitamin/Minerals Therapeutic Tablet PO SCH (08:14)
[2018-02-01 10:26] LABS: Phosphorus 3.2 mg/dL (2.5-4.9)
[2018-02-01 10:36] LABS: Calcium 9.1 mg/dL (8.5-10.1); Carbon Dioxide 25.1 meq/L (21.0-32.0); Potassium 3.3 meq/L (3.5-5.1)
--- NOTE | 2018-02-01 11:03 | P.PNIM ---
Physical Exam Vital signs: Last Vital Signs Temp 97.8 F 02/01/18 08:00 Pulse 73 02/01/18 08:00 Resp 20 02/01/18 08:00 BP 156/76 H 02/01/18 08:00 Pulse Ox 94 L 02/01/18 08:00 Intake & Output 01/30/18 01/31/18 02/01/18 02/02/18 06:59 06:59 06:59 06:59 Intake Total 624 / 624 0 / 0 Balance 624 / 624 0 / 0 Weight 73.5 kg Narrative: PE: GENERAL: Middle-aged white female in no acute distress. Awake and alert HEENT:not pale,anicteric,moist oral mucous membranes, PERRLA, EOMI.no nystagmus CARDIOVASCULAR: Regular rate and rhythm. No murmurs or rubs. RESPIRATORY: No obvious rhonchi or wheezing. Clear to auscultation. Breath sounds equal bilaterally. GASTROINTESTINAL: Abdomen soft, non-tender, nondistended. BS normal. MUSCULOSKELETAL: Extremities without clubbing, cyanosis, or edema. No obvious deformities. NEUROLOGICAL: Awake, alert,oriented to person,place(knows she is at [place], knows state), time-knows month,year, [facility]. No focal neurologic deficits. Moving both upper and lower extremities spontaneously, strength 5/5. no disdiadokinesia. SKIN: Focused skin assessment warm and dry. livedo reticularis noted on lower extremities bilaterally. PSYCHIATRIC: Appropriate mood and affect. Insight and judgment normal. Results Labs CBC & Chem 7: 01/31/18 05:02 02/01/18 07:34 Assessment and Plan (1) Encephalopathy: Code(s): G93.40 - Encephalopathy, unspecified Status: Acute (2) Seizure: Code(s): R56.9 - Unspecified convulsions Status: Acute (3) Alcohol abuse: Code(s): F10.10 - Alcohol abuse, uncomplicated Status: Acute (4) Pancytopenia: Code(s): D61.818 - Other pancytopenia Status: Acute (5) HTN (hypertension): Code(s): I10 - Essential (primary) hypertension Status: Acute Plan 1. Encephalopathy: likely multifactorial etiology due to meds--suspected muscle relaxant and benzo , and due to seizure. Uncontrolled BP may also have contributed. CT and MRI brain are negative for acute problems. 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 - urine drug screen was ordered, not done yet. -EEG pending. appreciate neurology consult recs. telemetry without events--discontinue. 2. Seizure: x1 while in ER, no h/o seizure per report. Likely in the setting of alcohol withdrawal vs HTN encephalopathy. Neuro Checks, Seizure Precautions, Check EEG, Consult Neurology as above, Ativan prn. 3. Alcohol Abuse: w/ recent cessation x9 days per report , CIWA, Seizure Precautions, MVT/Thiamine/Folate replacement. currently stable. 4. Pancytopenia: WBC 3.2, Hgb 10.5, Platelets 55, previously WBC 6.7, Hgb 12.5 and Platelets 142 on 08/12/15.--likely due to liver cirrhosis. monitor. 5. HTN:Uncontrolled, BP 232/100, HR 92, on admission may have been related to withdrawal. Patient reports being on Losartan but not clear of dose, started 50mg daily until dose is confirmed. change diet to cardiac 2gm sodium. -BP trends have improved Hypokalemia--replete PO. Check mag and phosphate levels. DVT Prophylaxis: SCD/Teds Social work for d/c planning as needed. Progress Note: Quality VTE Deep Vein Thrombosis/Pulmonary Embolism Present on Admission: No _ (1) HTN (hypertension) Qualifiers: Hypertension type:
--- NOTE | 2018-02-01 19:38 | MG ---
cc: Sai Camacho MD, PhD TEST NUMBER: [id number] TECHNIQUE: A 17-channel EEG. DESCRIPTION: Background rhythm reveals normal sleep activity, delta frequency with sleep spindles present and vertex sharp waves. No lateralizing features identified. No epileptiform features are seen. There is occasional muscle artifact and eye movement artifact present. During wakefulness, there is a normal alpha rhythm. Hyperventilation was not done. Photic resulted in a modest driving response. INTERPRETATION: Normal sleep and awake electroencephalogram. Sai Camacho MD, PhD EB/allyn , 07:16 PM , 07:20 PM
[2018-02-02] MEDS: Multivitamin/Minerals Therapeutic Tablet PO SCH (08:21)
[2018-02-02] MEDS: Senna/Docusate Sodium 8.6/50 MG Tablet PO SCH (08:22)
[2018-02-02] MEDS: Folic Acid 1 MG Tablet PO SCH (08:22)
--- NOTE | 2018-02-02 09:06 | P.DS ---
Date of admission: 01/30/18 20:59 Primary care physician: UNKNOWN Brief History from admission: This is a 63-year-old female with a PMH of Anxiety, Depression, Hepatitis C, Alcohol Abuse, Cirrhosis, HTN, Fibromyalgia, Rheumatoid Arthritis, Polyneuropathy and Tobacco Abuse who was brought to the ER by EMS from [facility] for AMS. Pt unable to provide any history as she is currently non-verbal , unclear if this is her baseline but appears new. Per EMS, pt is a new resident of [facility], was found w/ 2 bottles at bedside, empty bottle of Tizanidine 4mg filled 12/05/17 and bottle of Ativan 0.5mg #60 filled 01/15/18 w/ 2 pills remaining. Pt w/ known h/o Alcohol Abuse, apparently stopped drinking 9 days ago. While in ER had seizure x1. Currently awake and alert, but non- verbal. On exam pt w/ significant repetitive movements/dystonia. On arrival, BP 232/100, HR 92, O2 sat 92% on RA, Afebrile. W BC 3.2, hemoglobin 10.5, platelets 55. INR 1.2. Chemistry essentially unremarkable. Ammonia less than 10. Salicylates negative. Tylenol negative. Alcohol negative. CT Head negative. CXR w/ no acute findings. Poison Control contacted, recommended observation. MRI/MRA ordered in ER, currently pending. While in ER, pt was briefly answering few questions, and noted to have visual hallucinations-seeing green fingers on the TV. DS: Medications - Discharge Medications Prescriptions: losartan 50 mg PO DAILY #30 tab hxnswoda-rbmq-WE-calcium-mins [Thera M Plus (ferrous fumarat)] 1 tab PO DAILY # 30 tab thiamine HCl (vitamin B1) 100 mg PO DAILY #30 tab DS: Summary Hospital Course: 1. Encephalopathy: likely multifactorial etiology due to meds--suspected muscle relaxant and benzo , and due to seizure. Uncontrolled BP may also have contributed. CT and MRI brain are negative for acute problems. 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 - urine drug screen was ordered, not done yet. -EEG is normal appreciate neurology consult recs. No plan for antiseizure medications as EEG normal. Cleared by neurology for discharge. Patient improved significantly. telemetry without events--discontinue. 2. Seizure: x1 while in ER, no h/o seizure per report. Likely in the setting of alcohol withdrawal vs HTN encephalopathy. Neuro Checks, Seizure Precautions, Check EEG, Consult Neurology as above, Ativan prn. 3. Alcohol Abuse: w/ recent cessation x9 days per report , CIWA, Seizure Precautions, MVT/Thiamine/Folate replacement. currently stable. 4. Pancytopenia: WBC 3.2, Hgb 10.5, Platelets 55, previously WBC 6.7, Hgb 12.5 and Platelets 142 on 08/12/15.--likely due to liver cirrhosis. monitor. 5. HTN:Uncontrolled, BP 232/100, HR 92, on admission may have been related to withdrawal. Patient reports being on Losartan but not clear of dose, started 50mg daily until dose is confirmed. change diet to cardiac 2gm sodium. -BP trends have improved Hypokalemia--replete PO. Electrolytes replaced and back to normal. The patient improved significantly she is her baseline mentation. No seizures. EEG normal cleared by neurology for discharge. Patient is discharged in stable stable condition follow-up with PCP and consultants as outpatient. - Time Spent with Patient Total time spent providing and/or coordinating discharge services: Greater than 30 minutes - Quality: VTE Deep Vein Thrombosis/Pulmonary Embolism Present on Admission: No Exam Vital signs: Vital Signs 02/01/18 12:00 02/01/18 16:00 02/01/18 20:00 Temperature 97.9 F 97.8 F 98 F Pulse Rate 78 79 81 Respiratory Rate 20 20 20 Blood Pressure 131/66 149/70 H 149/70 H Pulse Oximetry 96 97 95 02/01/18 20:20 02/02/18 00:00 02/02/18 04:00 Temperature 98.1 F 98.3 F Pulse Rate 75 76 Respiratory Rate 16 16 Blood Pressure 148/67 H 133/82 Pulse Oximetry 96 96 97 Intake & Output 02/01/18 02/02/18 02/02/18 18:59 06:59 18:59 Intake Total 240 / 240 Balance 240 / 240 Weight 73.5 kg Intake: Oral 240 / 240 Other: # Voids 2 2 Date of Last Bowel Movement 01/31/18 01/31/18 # Bowel Movements 1 Narrative: GENERAL: Pleasant 63-year-old female appears in not acute distress. CARDIOVASCULAR: Regular rate and rhythm without murmurs, gallops, or rubs. RESPIRATORY: Breath sounds equal bilaterally. No accessory muscle use. GASTROINTESTINAL: Abdomen soft, non-tender, nondistended. MUSCULOSKELETAL: No cyanosis, or edema. BACK: Nontender without obvious deformity. No CVA tenderness. Results Procedures completed during hospitalization: No procedures Labs on day of discharge: Labs from last 24 hours 02/01/18 07:34 Sodium 141 Potassium 3.3 L Chloride 105 Carbon Dioxide 25.1 Anion Gap 11 BUN 8 Creatinine 0.68 Estimated GFR 87 L Random Glucose 86 Calcium 9.1 Phosphorus 3.2 Magnesium 2.0 - Impressions ITS Impressions Head CTA 01/30/18 00:00 CONCLUSION: 1. Negative CTA Head. In particular, no anterior communicating artery aneurysm as questioned on the MRI. . Chest X-Ray 01/30/18 18:10 CONCLUSION: No evidence of acute cardiopulmonary disease. Head CT 01/30/18 18:10 CONCLUSION: Negative noncontrast head CT. . Head MRI 01/30/18 19:38 CONCLUSION: 1. No bleed, infarct or other acute intracranial abnormality. 2. Very mild chronic white matter changes. Head MRA 01/30/18 19:38 CONCLUSION: 1. No thrombosis or significant stenotic disease. 2. Mild intracranial atherosclerosis. 3. 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 No bleed demonstrated on the head CT or MRI done earlier tonight. Nonemergent CT angiogram of the head suggested if felt clinically indicated. Discharge Plan - Discharge Disposition Patient Disposition: 03 Discharge to SNF - Discharge Condition Condition: Stable - Discharge Order Discharge Orders: Discharge Order (Routine); Ordered 02/02/18 Ordered By: Isabelle Mcclellan - Discharge Details Anticipated Discharge Date: 02/02/18 - Physicians Team Primary Care Provider: UNKNOWN, Attending Provider: Isabelle Mcclellan Other Providers: Sai Camacho MD, PhD ; [employer] ; [facility]
== END 2018-02-02 13:22 ==
LOC: NEPC 17:45 → NEDA 17:45 → NEDH 01-31 03:21 → N04 01-31 05:07
PROVIDERS: ADMIT Hospitalist; ATTEND Hospitalist
DX: I10 Essential (primary) hypertension; D61.818 Other pancytopenia; I67.1 Cerebral aneurysm, nonruptured; G24.9 Dystonia, unspecified; E87.6 Hypokalemia; B19.20 Unspecified viral hepatitis C without hepatic coma; F10.239 Alcohol dependence with withdrawal, unspecified; G92 Toxic encephalopathy; K74.60 Unspecified cirrhosis of liver; K21.9 Gastro-esophageal reflux disease without esophagitis; T50.905A Adverse effect of unspecified drugs, medicaments and biological substances, initial encounter; M79.7 Fibromyalgia; Z79.82 Long term (current) use of aspirin; R56.9 Unspecified convulsions; I67.2 Cerebral atherosclerosis; Z87.440 Personal history of urinary (tract) infections; M06.9 Rheumatoid arthritis, unspecified; F17.210 Nicotine dependence, cigarettes, uncomplicated

== ENCOUNTER 2018-02-10 02:19 | Inpatient (IN) ==
[2018-02-10 03:33] LABS: Baso # (Auto) 0.1 th/mm3 (0.0-0.2); Baso % (Auto) 2.3 % (0.0-2.0); Eos # (Auto) 0.2 th/mm3 (0.0-0.4); Hematocrit 33.9 % (35.0-46.0); Hemoglobin 11.4 gm/dL (11.6-15.3); Lymph # (Auto) 0.5 th/mm3 (1.0-4.8); Lymph % (Auto) 8.9 % (9.0-44.0); Mean Corpuscular HGB Conc 33.8 % (32.0-36.0); Mean Corpuscular Hemoglobin 28.1 pg (27.0-34.0); Mean Corpuscular Volume 83.1 fL (80.0-100.0); Mean Platelet Volume 9.2 fL (7.0-11.0); Mono # (Auto) 0.5 th/mm3 (0.0-0.9); Mono % (Auto) 7.6 % (0.0-8.0); Neut # (Auto) 4.6 th/mm3 (1.8-7.7); Neut % (Auto) 77.2 % (16.0-70.0); Platelet Count 95 th/mm3 (150-450); Red Blood Count 4.08 mil/mm3 (4.00-5.30); Red Cell Distribution Width 15.8 % (11.6-17.2)
[2018-02-10 03:39] LABS: Bilirubin,Urine Negative (Negative); Clarity,Urine Hazy (Clear); Color,Urine Amber (Yellw/Straw); Glucose,Urine (UA) Negative (Negative); Hyaline Casts,Urine 87 /lpf (0-3); Leukocyte Esterase,Urine Negative (Negative); Mucus,Urine Few /lpf (Occasional); Nitrite,Urine Negative (Negative); Squamous Epithelial Cell,Urine 1 /hpf (0-5)
[2018-02-10 03:42] LABS: Amphetamine Screen,Urine Neg (Neg); Barbiturate Screen,Urine Neg (Neg); Cannabinoid Screen,Urine Neg (Neg); Cocaine Screen,Urine Neg (Neg)
[2018-02-10 03:46] LABS: Activated Partial Thrombo Time 27.5 sec (23.4-31.7); INR 1.2 Ratio; Prothrombin Time 12.3 sec (9.8-11.6)
[2018-02-10 03:47] LABS: Opiate Screen,Urine Neg (Neg)
[2018-02-10 03:49] LABS: Alanine Aminotransferase 35 U/L (10-53); Albumin 4.1 g/dL (3.4-5.0); Anion Gap 12 meq/L (5-15); Aspartate Aminotransferase 45 U/L (15-37); Blood Urea Nitrogen 14 mg/dL (7-18); Calcium 9.4 mg/dL (8.5-10.1); Carbon Dioxide 22.9 meq/L (21.0-32.0); Chloride 109 meq/L (98-107); Glomerular Filtration Rate 45 mL/min (>89); Glucose,Random 84 mg/dL (74-106); Lipase 75 U/L (73-393); Magnesium 1.8 mg/dL (1.5-2.5); Potassium 3.9 meq/L (3.5-5.1); Sodium 144 meq/L (136-145)
[2018-02-10 03:59] LABS: Alkaline Phosphatase 118 U/L (45-117); Troponin I 0.05 ng/mL (0.02-0.05)
[2018-02-10 04:26] LABS: Ovalocytes 1+; Platelet Morphology Normal (Normal)
--- NOTE | 2018-02-10 04:26 | ED ---
HPI General Chief complaint: Altered Mental Status Stated complaint: Medical Time Seen by Provider: 02/10/18 02:44 Source: patient Mode of arrival: EMS Limitations: altered mental status History of Present Illness HPI narrative: The patient is a 63 year old female who presents to the [facility] emergency department with a history of altered mentation noted by the prison staff prompting a call to ambulance services. The patient was agitated, hallucinating, and unable to be redirected. The patient herself is unable to provide any significant history. The patient repeatedly is yelling telling me to go away. The patient's initial blood pressure on arrival is 209/ 85. The patient's heart rate is 105. No other history is able to be obtained from the patient. The patient's history is obtained from reviewing the electronic medical record and the prison record. Related Data Home Medications Medication Instructions Recorded Confirmed aspirin 81 mg PO DAILY 01/30/18 02/10/18 folic acid 1 mg PO DAILY 01/30/18 02/10/18 pantoprazole 40 mg PO DAILY 01/30/18 02/10/18 quetiapine [Seroquel] 100 mg PO HS 01/30/18 02/10/18 rifaximin [Xifaxan] 550 mg PO BID 01/30/18 02/10/18 sertraline 100 mg PO DAILY 01/30/18 02/10/18 Previous Rx's Medication Instructions Recorded losartan 50 mg PO DAILY #30 tab 02/02/18 bawldbif-nabl-WZ-calcium-mins 1 tab PO DAILY #30 tab 02/02/18 [Thera M Plus (ferrous fumarat)] thiamine HCl (vitamin B1) 100 mg PO DAILY #30 tab 02/02/18 Allergies Allergy/AdvReac Type Severity Reaction Status Date / Time alprazolam [From Xanax] Allergy UNKNOWN Verified 01/30/18 18:11 pregabalin [From Lyrica] Allergy UNKNOWN Verified 01/30/18 18:11 Review of Systems ROS Unobtainable ROS Unobtainable: unobtainable due to mental status PMFSH Social History Social History Substance History: Unable to Obtain Second Hand Smoke Exposure: No Smoking Status: Current every day smoker Tobacco Type: Cigarettes How Often Do You Have a Drink Containing Alcohol: 2 to 3 times a week Recent Travel in [facility] within the Last 8 Weeks: No Recent Out of Country Travel within the Last 8 Weeks: No Immunization History Tetanus Immunization: Unable to Assess Exam Const General: other (The patient is agitated and uncooperative. The patient is flailing her arms and legs. The patient is repeating "Trix are for kids") Orientation: alert and awake Limitations: altered mental status [facility] Head: normocephalic and atraumatic Nose: no nasal discharge and no epistaxis Mouth: moist mucous membranes Eyes Sclera: normal sclerae Pupils: PERRL Neck Neck: no meningeal signs, trachea midline and no JVD Resp Effort & Inspection: no use of accessory muscles Auscultation: clear to auscultation bilaterally Cardio Rate: tachycardic (Sinus tachycardia in the low 100s. No pulse deficits to the extremities on simultaneous auscultation and palpation of her radial artery) Rhythm: regular rhythm Heart Sounds: no gallops, no murmurs and no rubs GI Inspection: non-distended Palpation: soft, no hepatosplenomegaly, no guarding, not rigid and nontender Auscultation: normal bowel sounds Back/Spine/Pelvis Back: no CVA tenderness Skin General: dry skin (warm) Neuro General: alert, awake and other (The patient is agitated, uncooperative with formal neurologic testing although she is moving all extremities with 5/5 strength, intact sensation over all dermatomes.) Speech: speech normal Motor: no movement abnormalities noted Extrem General: normal to inspection, no clubbing, no cyanosis and no edema Psych Mood: irritable mood Affect: irritable affect and other (Agitated affect) Thought Content: hallucinations Judgment: limited Course Initial Documented Vital Signs Pulse Rate 105 H 02/10/18 02:39 Respiratory Rate 18 02/10/18 02:39 Blood Pressure 209/85 H 02/10/18 02:39 Pulse Oximetry 97 02/10/18 02:39 Last Documented Vital Signs Pulse Rate 90 02/10/18 06:43 Respiratory Rate 16 02/10/18 02:48 Blood Pressure 99/56 L 02/10/18 02:48 Pulse Oximetry 98 02/10/18 03:00 Medical Decision Making MDM Narrative Medical decision making narrative: During the course of the patient's emergency department visit, the patient's history, examination, and differential diagnosis were reviewed with the patient. The patient was placed on a athletic monitor with oximetry and frequent blood pressure monitoring. The patient had IV access obtained and blood work sent for analysis. A diagnostic evaluation was started regarding the patient altered mentation. Diagnostic studies are remarkable for a white count of 6.0, hemoglobin is 11.4, platelets are 95 in a patient with a history of thrombocytopenia, lymphocytes 8.9, PT 12.3, PTT 27.5, chemistry is remarkable for chloride of 109, creatinine 1.21 which is increased from 0.68, total bilirubin is 1.1, AST 45, alk phos 118 , lipase within normal limits, TSH within normal limits, ammonia level is 66, elevated consistent with hepatic encephalopathy. The patient will be given lactulose p.o. Urinalysis showed 30 protein hazy urine few mucus otherwise unremarkable. Urine drug screen is negative, alcohol level is less than 3. From reviewing the patient's electronic medical record, the patient was last seen in the hospital and admitted on January 30 related to what was thought to be an overdose of tizanidine and Ativan. 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 The patient CT scan of the brain will be repeated at this time. The patient was provided Haldol 2 mg IM, Vistaril 25 mg IM for agitation. The patient's case including history, pertinent physical examination findings, and laboratory studies were discussed with Dr. Grace. It was agreed that the patient would be admitted to the hospitalist service. The patient's results were discussed with the patient, including the plan of care. I explained that further testing and/ or monitoring is indicated based on the patient's history, examination, and/ or laboratory findings. Therefore, I recommended admission for additional evaluation. The patient expressed understanding and was agreeable with this plan. The patient was admitted to the hospital in guarded condition and sent to a bed under the care of the [facility] service. Medical Screen Exam Complete: Yes Emergency Medical Condition: Yes Differential Diagnosis Differential Diagnosis: Acute psychosis, versus hepatic encephalopathy, versus intracranial abnormality, versus UTI Medical Records Medical records reviewed: Yes I reviewed the patient's medical records. Lab Data Lab results reviewed: Yes I reviewed the patient's lab results. Result diagrams: 02/10/18 03:15 02/10/18 03:15 Lab Results 02/10/18 02/10/18 02/10/18 Range/Units 03:15 03:15 03:15 WBC 6.0 (4.0-11.0) th/mm3 RBC 4.08 (4.00-5.30) mil/mm3 Hgb 11.4 L (11.6-15.3) gm/dL Hct 33.9 L (35.0-46.0) % MCV 83.1 (80.0-100.0) fL MCH 28.1 (27.0-34.0) pg MCHC 33.8 (32.0-36.0) % RDW 15.8 (11.6-17.2) % Plt Count 95 L (150-450) th/mm3 MPV 9.2 (7.0-11.0) fL Prelim Diff (Auto) Slide review pending Neut % (Auto) 77.2 H (16.0-70.0) % Lymph % (Auto) 8.9 L (9.0-44.0) % Ness % (Auto) 7.6 (0.0-8.0) % Eos % (Auto) 4.0 (0.0-4.0) % Baso % (Auto) 2.3 H (0.0-2.0) % Neut # (Auto) 4.6 (1.8-7.7) th/mm3 Lymph # (Auto) 0.5 L (1.0-4.8) th/mm3 Ness # (Auto) 0.5 (0.0-0.9) th/mm3 Eos # (Auto) 0.2 (0.0-0.4) th/mm3 Baso # (Auto) 0.1 (0.0-0.2) th/mm3 WBC Differential . Diff Scan Auto diff confirmed Differential Comment . Platelet Estimate Low L (Normal) Platelet Morphology Normal (Normal) Ovalocytes 1+ H (None) PT 12.3 H (9.8-11.6) sec INR 1.2 Ratio APTT 27.5 (23.4-31.7) sec Sodium 144 (136-145) meq/L Potassium 3.9 (3.5-5.1) meq/L Chloride 109 H (98-107) meq/L Carbon Dioxide 22.9 (21.0-32.0) meq/L Anion Gap 12 (5-15) meq/L BUN 14 (7-18) mg/dL Creatinine 1.21 H (0.50-1.00) mg/dL Estimated GFR 45 L (>89) mL/min Random Glucose 84 (74-106) mg/dL Calcium 9.4 (8.5-10.1) mg/dL Magnesium 1.8 (1.5-2.5) mg/dL Total Bilirubin 1.1 H (0.2-1.0) mg/dL AST 45 H (15-37) U/L ALT 35 (10-53) U/L Alkaline Phosphatase 118 H (45-117) U/L Ammonia (11-32) mcmol/L Troponin I 0.05 (0.02-0.05) ng/mL Total Protein 8.0 (6.4-8.2) g/dL Albumin 4.1 (3.4-5.0) g/dL Lipase 75 (73-393) U/L TSH 2.030 (0.358-3.740) uIU/mL Urine Color (Yellw/Straw) Urine Clarity (Clear) Urine pH (5.0-8.5) Ur Specific [place] (1.002-1.035) Urine Protein (Neg-Trace) mg/dL Urine Glucose (UA) (Negative) mg/dL Urine Ketones (Negative) mg/dL Urine Occult Blood (Negative) Urine Nitrate (Negative) Urine Bilirubin (Negative) Urine Urobilinogen (Less than 2) mg/dL Ur Leukocyte Esterase (Negative) Urine RBC (0-3) /hpf Urine WBC (0-5) /hpf Ur Squamous Epith Cells (0-5) /hpf Hyaline Casts (0-3) /lpf Urine Mucus (Occasional) /lpf Micro UA Comment Ur Microscopic Review Urine Culture Comments Urine Opiates Screen (Neg) Ur Barbiturates Screen (Neg) Ur Amphetamines Screen (Neg) U Benzodiazepines Scrn (Neg) Urine Cocaine Screen (Neg) U Cannabinoids Screen (Neg) Serum Alcohol Less than 3 (0-5) mg/dL 02/10/18 02/10/18 02/10/18 Range/Units 03:15 03:20 03:20 WBC (4.0-11.0) th/mm3 RBC (4.00-5.30) mil/mm3 Hgb (11.6-15.3) gm/dL Hct (35.0-46.0) % MCV (80.0-100.0) fL MCH (27.0-34.0) pg MCHC (32.0-36.0) % RDW (11.6-17.2) % Plt Count (150-450) th/mm3 MPV (7.0-11.0) fL Prelim Diff (Auto) Neut % (Auto) (16.0-70.0) % Lymph % (Auto) (9.0-44.0) % Ness % (Auto) (0.0-8.0) % Eos % (Auto) (0.0-4.0) % Baso % (Auto) (0.0-2.0) % Neut # (Auto) (1.8-7.7) th/mm3 Lymph # (Auto) (1.0-4.8) th/mm3 Ness # (Auto) (0.0-0.9) th/mm3 Eos # (Auto) (0.0-0.4) th/mm3 Baso # (Auto) (0.0-0.2) th/mm3 WBC Differential Diff Scan Differential Comment Platelet Estimate (Normal) Platelet Morphology (Normal) Ovalocytes (None) PT (9.8-11.6) sec INR Ratio APTT (23.4-31.7) sec Sodium (136-145) meq/L Potassium (3.5-5.1) meq/L Chloride (98-107) meq/L Carbon Dioxide (21.0-32.0) meq/L Anion Gap (5-15) meq/L BUN (7-18) mg/dL Creatinine (0.50-1.00) mg/dL Estimated GFR (>89) mL/min Random Glucose (74-106) mg/dL Calcium (8.5-10.1) mg/dL Magnesium (1.5-2.5) mg/dL Total Bilirubin (0.2-1.0) mg/dL AST (15-37) U/L ALT (10-53) U/L Alkaline Phosphatase (45-117) U/L Ammonia 66 H (11-32) mcmol/L Troponin I (0.02-0.05) ng/mL Total Protein (6.4-8.2) g/dL Albumin (3.4-5.0) g/dL Lipase (73-393) U/L TSH (0.358-3.740) uIU/mL Urine Color [place] (Yellw/Straw) Urine Clarity Hazy H (Clear) Urine pH 5.0 (5.0-8.5) Ur Specific [place] 1.020 (1.002-1.035) Urine Protein 30 H (Neg-Trace) mg/dL Urine Glucose (UA) Negative (Negative) mg/dL Urine Ketones Negative (Negative) mg/dL Urine Occult Blood Negative (Negative) Urine Nitrate Negative (Negative) Urine Bilirubin Negative (Negative) Urine Urobilinogen Less than 2 (Less than 2) mg/dL Ur Leukocyte Esterase Negative (Negative) Urine RBC 1 (0-3) /hpf Urine WBC 5 (0-5) /hpf Ur Squamous Epith Cells 1 (0-5) /hpf Hyaline Casts 87 (0-3) /lpf Urine Mucus Few H (Occasional) /lpf Micro UA Comment Cath-culture not ind Ur Microscopic Review Not Reportable Urine Culture Comments Cath-cult not ind Urine Opiates Screen Neg (Neg) Ur Barbiturates Screen Neg (Neg) Ur Amphetamines Screen Neg (Neg) U Benzodiazepines Scrn Neg (Neg) Urine Cocaine Screen Neg (Neg) U Cannabinoids Screen Neg (Neg) Serum Alcohol (0-5) mg/dL ECG Data Attestation: I personally reviewed and interpreted this ECG as follows: Interpretation: Patient had an EKG done on arrival. The patient's EKG reveals a sinus rhythm heart rate of 93, QRS duration is 106 ms, QTC [address] segment elevation. Tremulous baseline is noted which could be affecting interpretation, however the patient is in a psychomotor agitated state making it difficult to calm her to obtain a better EKG. Discharge Plan Discharge Disposition Patient Disposition: 30 Still Patient Discharge Details Diagnosis: Altered mental status, Encephalopathy, hepatic Physicians Team ED Provider: Rohini Morales Primary Care Provider: Primary Care Ellie Ayoub Attending Provider: Margy Grace Status ED Status: Admitted Patient
[2018-02-10] MEDS ORDERED: Haloperidol Inj 5 MG/ML Ampul IM ONE (05:36)
[2018-02-10] MEDS ORDERED: Acetaminophen 325 MG Tablet PO PRN (05:54)
[2018-02-10] MEDS ORDERED: Bisacodyl 10 MG Supp RECTAL PRN (05:54)
[2018-02-10] MEDS: Sod Chloride 0.9% Inj 1,000 ML IV.CONT SCH ×2 (06:02→16:21)
[2018-02-10] MEDS ORDERED: Sodium Chloride 0.9% 2 ML Flush PRN IV.FLUSH (06:03)
[2018-02-10] MEDS ORDERED: Water Sterile for Irr Bot 700 ML, Lactulose Liq 300 ML RECTAL ONE ×2 (07:00)
--- NOTE | 2018-02-10 07:55 | P.HPIM ---
History of Present Illness Primary Care Physician: No Primary Care Physician Chief Complaint: altered mental status History of Present Illness: patient is a 63 y/o female with history of a anxiety, Depression, Hepatitis C, Alcohol Abuse, Cirrhosis, HTN, Fibromyalgia, Rheumatoid Arthritis, Polyneuropathy who was brought to ER with altered mental status. information ins limited due to the patient's mental condition. she was very confused and on restraints at the time of my evaluation. she was admitted to this hospital about ten days ago with altered mental status and seizure. she had neurological work-up at the time and was evaluated by neurology during that visit. Inpatient Certification: I certify that the inpatient services were ordered in accordance with Medicare regulations governing the order. This includes certification that hospital inpatient services are reasonable and necessary and in the case of services not specified as inpatient-only under 42 CFR 419.22(n), that they are appropriately provided as inpatient services in accordance to with the 2-midnight benchmark under 43 CFR 412.3(e) Estimated Total Length of Stay (Days): 2 Plans for Post Hospital Care: SNF Review of Systems unobtainable due to mental condition PMFSH - History History Provided By: Punch Press Setter / EMT - Medical History Medical History: Medical History (Last Reviewed 02/10/18 @ 07:49 by Altagracia Gibson MD) Acute kidney failure, unspecified Alcohol abuse Anxiety disorder Cirrhosis of liver Essential hypertension Fibromyalgia Gastro-esophageal reflux Generalized weakness Hx of fall Hx of urinary tract infection Lack of coordination Major depressive disorder Polyneuropathy Rheumatoid arthritis Syncope and collapse Tobacco use Unspecified convulsions Unsteadiness on feet Viral hepatitis C - Surgical History Surgical History: Surgical History (Last Reviewed 02/10/18 @ 07:49 by Altagracia Gibson MD) Presence of right artificial shoulder joint - Family History Family History: Family History (Last Updated 02/10/18 @ 07:49 by Altagracia Gibson MD) Other No pertinent family history - Tobacco History Second Hand Smoke Exposure: No Tobacco Use In Past 30 Days: Yes Smoking Status: Current every day smoker Tobacco Type: Cigarettes - Alcohol History How Often Do You Have a Drink Containing Alcohol: 2 to 3 times a week - Substance Use History Substance History: Unable to Obtain - Travel History Recent Travel in the [place] Within the Last 8 Weeks: No Recent Travel Out of the Country Within the Last 8 Weeks: No - Immunization History Tetanus Immunization: Unable to Assess Medications and Allergies Active Medications: Active Medications Acetaminophen (Tylenol) 650 mg PO Q4H PRN PRN Reason: Temp > 100.4 Al Hydroxide/Mg Hydroxide (Milk Of Stewart Liq) 30 ml PO Q12H PRN PRN Reason: Mild Constipation Bisacodyl (Dulcolax Supp) 10 mg RECTAL DAILY PRN PRN Reason: SEVERE CONSITIPATION Sodium Chloride (Ns Inj) 1,000 mls @ 100 mls/hr IV.CONT .Q10H [facility] Last Admin: 02/10/18 06:02 Dose: 100 mls/hr Ondansetron HCl (Zofran Inj) 4 mg IV.PUSH Q6H PRN PRN Reason: NAUSEA OR VOMITING Sennosides (Senokot) 17.2 mg PO Q12H PRN PRN Reason: Moderate Constipation Sodium Chloride (Ns Flush) 2 ml IV.FLUSH BID [facility] Sodium Chloride (Ns Flush) 2 ml IV.FLUSH PRN PRN PRN Reason: FLUSH AFTER USING IV ACCESS Allergies Allergy/AdvReac Type Severity Reaction Status Date / Time alprazolam [From Xanax] Allergy UNKNOWN Verified 01/30/18 18:11 pregabalin [From Lyrica] Allergy UNKNOWN Verified 01/30/18 18:11 Home Medications Medication Instructions Recorded Confirmed Type aspirin 81 mg PO DAILY 01/30/18 02/10/18 History folic acid 1 mg PO DAILY 01/30/18 02/10/18 History pantoprazole 40 mg PO DAILY 01/30/18 02/10/18 History quetiapine [Seroquel] 100 mg PO HS 01/30/18 02/10/18 History rifaximin [Xifaxan] 550 mg PO BID 01/30/18 02/10/18 History sertraline 100 mg PO DAILY 01/30/18 02/10/18 History Exam Vital signs: Vital Signs 02/10/18 02:39 02/10/18 02:48 02/10/18 03:00 Pulse Rate 105 H 90 98 H Respiratory Rate 18 16 Blood Pressure 209/85 H 99/56 L Pulse Oximetry 97 98 98 02/10/18 06:43 Pulse Rate 90 Respiratory Rate Blood Pressure Pulse Oximetry Intake & Output 02/09/18 02/10/18 02/10/18 18:59 06:59 18:59 Weight 72.575 kg - Constitutional no acute distress (but very confused and on restraints.) - Routine HEENT Exam Eye: Present: PERRL - Routine Neck Exam Present: supple - Routine Respiratory Exam Present: CTA bilaterally - Routine Cardiovascular Exam Present: RRR - Routine Abdominal Exam Present: soft - Routine Extremities Exam Comments: no pedal edema. - Routine Neurological Exam awake but confused. Results - Labs CBC & Chem 7: 02/10/18 03:15 02/10/18 03:15 Labs: Short CBC 02/10/18 Range/Units 03:15 WBC 6.0 (4.0-11.0) th/mm3 Hgb 11.4 L (11.6-15.3) gm/dL Hct 33.9 L (35.0-46.0) % Plt Count 95 L (150-450) th/mm3 BMP 02/10/18 03:15 Sodium 144 Potassium 3.9 Chloride 109 H Carbon Dioxide 22.9 BUN 14 Creatinine 1.21 H Calcium 9.4 Cardiac Enzymes 02/10/18 Range/Units 03:15 Troponin I 0.05 (0.02-0.05) ng/mL Liver Function 02/10/18 Range/Units 03:15 Total Bilirubin 1.1 H (0.2-1.0) mg/dL AST 45 H (15-37) U/L ALT 35 (10-53) U/L Alkaline Phosphatase 118 H (45-117) U/L Albumin 4.1 (3.4-5.0) g/dL Urine 02/10/18 Range/Units 03:20 Urine Color Iveth (Yellw/Straw) Urine Clarity Hazy H (Clear) Urine pH 5.0 (5.0-8.5) Ur Specific [place] 1.020 (1.002-1.035) Urine Protein 30 H (Neg-Trace) mg/dL Urine Glucose (UA) Negative (Negative) mg/dL Caprini VTE Risk Assessment Caprini VTE Risk Assessment: Moderate/High Risk (score >= 2) Caprini Risk Assessment Model: Point Value = 1 Point Value = 2 Point Value = 3 Point Value = 5 Age 41-60 Minor surgery BMI > 25 kg/m2 Swollen legs Varicose veins or History of unexplained or recurrent spontaneous Oral contraceptives or hormone replacement Sepsis (< 1 month) Serious lung disease, including pneumonia (< 1 month) Abnormal pulmonary function Acute myocardial infarction Congestive heart failure (< 1 month) History of inflammatory bowel disease Medical patient at bed rest Age 61-74 Arthroscopic surgery Major open surgery (> 45 min) Laparoscopic surgery (> 45 min) Malignancy Confined to bed (> 72 hours) Immobilizing plaster cast Central venous access Age >= 75 History of VTE Family history of VTE Factor V Leiden Prothrombin [id number] Lupus anticoagulant Anticardiolipin antibodies Elevated serum homocysteine Heparin-induced thrombocytopenia Other congenital or acquired thrombophilia Stroke (< 1 month) Elective arthroplasty Hip, pelvis, or leg fracture Acute spinal cord injury (< 1 month) Prophylaxis Regimen: Total Risk Factor Score Risk Level Prophylaxis Regimen 0-1 Low Early ambulation 2 Moderate Order ONE of the following: *Sequential Compression Device (SCD) *Heparin 5000 units SQ BID 3-4 Higher Order ONE of the following medications: *Heparin 5000 units SQ TID *Enoxaparin/Lovenox 40 mg SQ daily (WT < 150 kg, CrCl > 30 mL/min) *Enoxaparin/Lovenox 30 mg SQ daily (WT < 150 kg, CrCl > 10-29 mL/min) *Enoxaparin/Lovenox 30 mg SQ BID (WT < 150 kg, CrCl > 30 mL/min) AND/OR *Sequential Compression Device (SCD) 5 or more Highest Order ONE of the following medications: *Heparin 5000 units SQ TID (Preferred with Epidurals) *Enoxaparin/Lovenox 40 mg SQ daily (WT < 150 kg, CrCl > 30 mL/min) *Enoxaparin/Lovenox 30 mg SQ daily (WT < 150 kg, CrCl > 10-29 mL/min) *Enoxaparin/Lovenox 30 mg SQ BID (WT < 150 kg, CrCl > 30 mL/min) AND *Sequential Compression Device (SCD) Assessment and Plan - Plan A/P - acute encephalopathy with history of anxiety/ depression CT head pending- continue with neuro-checks- will consult neurology and psych. of note the patient was admitted to this hospital about ten days ago with altered mental status and seizure believed to be due to benzodiazepine and muscle relaxants. 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 -hypertension; resume Losartan and continue to monitor. -acute kidney injury; continue IV fluid and monitor the renal function -hepatitis C/ Cirrhosis / elevated ammonia level. continue with Lactulose/ and Rifaximin- check the ammonia level tomorrow. -thrombocytopenia- chronic; will monitor -DVT prophylaxis with SCD's Discharge Planning: pending w/u.
[2018-02-10] MEDS ORDERED: rifAXIMin 550 MG Tablet PO SCH (09:00)
[2018-02-10] MEDS ORDERED: Haloperidol Inj 5 MG/ML Ampul IM PRN (09:00)
[2018-02-10] MEDS ORDERED: Haloperidol Inj 5 MG/ML Ampul IV.PUSH PRN (11:10)
[2018-02-10] MEDS ORDERED: LORazepam 1 MG Tablet PO PRN (11:10)
[2018-02-10] MEDS: Folic Acid 1 MG Tablet PO SCH (11:12)
[2018-02-10] MEDS ORDERED: Haloperidol Inj 5 MG/ML Ampul IM STA (11:16)
--- NOTE | 2018-02-10 12:14 | XR ---
EXAM DATE: 02/10/2018 12:09 PM EST AGE/SEX: 63 years / Female INDICATIONS: Unable to get patient history. CLINICAL DATA: This is the patient's initial encounter. Patient reports that signs and symptoms have been present for 1 day and indicates a pain score of Nonresponsive. MEDICAL/SURGICAL HISTORY: Non-responsive. Non-responsive. COMPARISON: [facility] [place], CHEST 1V SINGLE AP, 01/30/2018. . FINDINGS: A single AP view of the chest demonstrates the lungs to be symmetrically aerated without evidence of mass, infiltrate or effusion. The cardiomediastinal contours are unremarkable. Prosthetic right shou lder joint is noted. Osseous structures are intact. CONCLUSION: Stable chest without evidence of acute cardiopulmonary process. Electronically signed by: Judah Bernal MD 02/10/2018 12:13 PM EST
--- NOTE | 2018-02-10 12:37 | CT ---
EXAM DATE: 02/10/2018 12:30 PM EST AGE/SEX: 63 years / Female INDICATIONS: Altered mental status. CLINICAL DATA: This is the patient's initial encounter. Patient reports that signs and symptoms have been present for 1 day and indicates a pain score of Nonresponsive. MEDICAL/SURGICAL HISTORY: Hepatitis C. Hypertension. Fibromyalgia. ETOH None. RADIATION DOSE: 56.35 CTDI (mGy) COMPARISON: [facility] [place], CTA HEAD W CONTRAST W 3D, 01/30/2018. . TECHNIQUE: CT of the head without contrast. Using automated exposure control and adjustment of the mA and/or kV according to patient size, radiation dose was kept as low as reasonably achievable to ob tain optimal diagnostic quality images. DICOM format image data is available electronically for revi ew and comparison. FINDINGS: Cerebrum: The ventricles are normal for age. No evidence of midline shift, mass lesion, hemorrhage or acute infarction. No extraaxial fluid collections are seen. Posterior Fossa: The cerebellum and brainstem are intact. The 4th ventricle is midline. The cerebe llopontine angle is unremarkable. Extracranial: The visualized portion of the orbits is intact. Skull: The calvaria is intact. No evidence of skull fracture. CONCLUSION: 1. Negative CT Head non contrast. 2. No evidence of acute infarct, hemorrhage, mass or edema. . Electronically signed by: Judah Bernal MD 02/10/2018 12:36 PM EST
--- NOTE | 2018-02-10 15:11 | ECG ---
Date Performed: 02/10/2018 Time Performed: 04:12:48 PTAGE: 63 years EKG: NORMAL Sinus rhythm LEFT ATRIAL ABNORMALITY ST-T WAVE CHANGES, PROBABLY DUE TO LVH VOLTAGE HAS INCREASED FROM PRIOR TRAC ING. ABNORMAL ECG PREVIOUS TRACING : 01/30/2018 18.22 DOCTOR: Palomo Morales Interpretating Date/Time 02/10/2018 15:10:10
--- NOTE | 2018-02-10 15:15 | P.CONPSY ---
Provisional Diagnosis Admission Date: February 10, 2018 05:43 [place] I.: Unspecified psychosis Vs delirium, R/O Bipolar, R/O benzodiazepine withdrawal, alcohol use disorder in sustained full remission, benzodiazepine use disorder History of Present Illness Service: ER Primary Care Provider: No Primary Care Physician Chief Complaint: altered mental status History of Present Illness: The patient is a 63-year-old woman, domiciled along in [facility], , she has 2 kids, supported by Social Security, with a psychiatric history of depression, anxiety, early dementia, benzodiazepine abuse , alcohol use disorder in full sustained remission, she is on Zoloft 100 mg and Seroquel 100 mg at bedtime prescribed by PCP, no previous psychiatric admissions , no previous suicide attempts, with medical history of Hepatitis C, Cirrhosis, HTN, seizures, fibromyalgia, Rheumatoid Arthritis, Polyneuropathy, who was brought to ER with altered mental status. Getting firsthand information is limited due to the patient's mental condition. She as initially very confused and agitated and on restraints at the time of initial evaluation. She was admitted to this hospital about ten days ago with altered mental status and seizure. Consulted to psychiatry to address altered mental status. On my psychiatric evaluation the patient is restrained in 4 points, quite agitated, ulcer, but with a prominent tangentiality, pressured speech even though she is oriented x3. The patient is seen again, very irritable, no able to provide any meaningful information for the psychiatric assessment. He is also having visual hallucinations, she is talking with people are now present in the room. However her son Charles Chinchilla, , was able to help with collateral information about the patient. He explains that he is not very sure that her mother has any type of psychiatric illness in the past, he clarifies that she was an alcoholic, but she was clean for over 5 years. She has been facing issues of benzodiazepine dependence, about a month ago her Xanax was discontinued by PCP due to abuse. He reports that patient's father's had Alzheimer's disease. PPHx: psychiatric history of depression, anxiety, early dementia, benzodiazepine abuse, alcohol use disorder in full sustained remission, she is on Zoloft 100 mg and Seroquel 100 mg at bedtime prescribed by PCP, no previous psychiatric admissions, no previous suicide attempts PMHx: with medical history of Hepatitis C, Cirrhosis, HTN, seizures, fibromyalgia, Rheumatoid Arthritis, Polyneuropathy Family Hx: Her father had Torey disease Substance Hx: Patient uses alcohol, but has been clean for 5 years, she has also history of benzodiazepines dependence, but, as per son she has no being able to reach benzodiazepines at least in the last month Social Hx: Patient was born and raised in [place], she lives in [place], , mother of 2 kids, supported by Social Security [facility] - History History Provided By: Technical Services Manager / EMT - Medical History Medical History: Medical History (Last Reviewed 02/10/18 @ 07:49 by Altagracia Gibson MD) Acute kidney failure, unspecified Alcohol abuse Anxiety disorder Cirrhosis of liver Essential hypertension Fibromyalgia Gastro-esophageal reflux Generalized weakness Hx of fall Hx of urinary tract infection Lack of coordination Major depressive disorder Polyneuropathy Rheumatoid arthritis Syncope and collapse Tobacco use Unspecified convulsions Unsteadiness on feet Viral hepatitis C - Surgical History Surgical History: Surgical History (Last Reviewed 02/10/18 @ 07:49 by Altagracia Gibson MD) Presence of right artificial shoulder joint - Family History Family History: Family History (Last Updated 02/10/18 @ 07:49 by Altagracia Gibson MD) Other No pertinent family history - Tobacco History Second Hand Smoke Exposure: No Tobacco Use In Past 30 Days: Yes Smoking Status: Current every day smoker Tobacco Type: Cigarettes - Alcohol History How Often Do You Have a Drink Containing Alcohol: 2 to 3 times a week - Substance Use History Substance History: Unable to Obtain - Travel History Recent Travel in the [facility] Within the Last 8 Weeks: No Recent Travel Out of the Country Within the Last 8 Weeks: No - Immunization History Tetanus Immunization: Unable to Assess Medications and Allergies Active Medications: Active Medications Acetaminophen (Tylenol) 650 mg PO Q4H PRN PRN Reason: Temp > 100.4 Al Hydroxide/Mg Hydroxide (Milk Of Magnesia Liq) 30 ml PO Q12H PRN PRN Reason: Mild Constipation Aspirin (Aspirin Chew) 81 mg PO DAILY [facility] Last Admin: 02/10/18 11:11 Dose: Not Given Bisacodyl (Dulcolax Supp) 10 mg RECTAL DAILY PRN PRN Reason: SEVERE CONSITIPATION Divalproex Sodium (Depakote Dr) 250 mg PO BID [facility] Flumazenil (Romazecon Inj) 0.2 mg IV.PUSH Q1M PRN PRN Reason: OVERSEDATION Folic Acid (Folic Acid) 1 mg PO DAILY [facility] Last Admin: 02/10/18 11:12 Dose: Not Given Haloperidol Lactate (Haldol Inj) 2 mg IM Q6H PRN PRN Reason: agitation/hallucination Last Admin: 02/10/18 09:30 Dose: 2 mg Haloperidol Lactate (Haldol Inj) 1 mg IV.PUSH Q15M PRN PRN Reason: for severe agitation Sodium Chloride (Ns Inj) 1,000 mls @ 100 mls/hr IV.CONT .Q10H [facility] Last Admin: 02/10/18 06:02 Dose: 100 mls/hr Lactulose (Lactulose Liq) 30 ml PO BID [facility] Lorazepam (Ativan) 1 mg PO Q4H PRN PRN Reason: for CIWA 8-10 Lorazepam (Ativan) 2 mg PO Q2H PRN PRN Reason: for CIWA 11-14 Lorazepam (Ativan Inj) 2 mg IV.PUSH Q2H PRN PRN Reason: for CIWA 11-14 Lorazepam (Ativan Inj) 2 mg IV.PUSH Q15M PRN PRN Reason: for CIWA > 20 Lorazepam (Ativan Inj) 1 mg IV.PUSH Q4H PRN PRN Reason: for CIWA 8-10 Lorazepam (Ativan Inj) 2 mg IV.PUSH Q1H PRN PRN Reason: for CIWA 15-20 Losartan Potassium (Cozaar) 50 mg PO DAILY [facility] Last Admin: 02/10/18 11:11 Dose: Not Given Ondansetron HCl (Zofran Inj) 4 mg IV.PUSH Q6H PRN PRN Reason: NAUSEA OR VOMITING Pantoprazole Sodium (Protonix) 40 mg PO DAILY [facility] Last Admin: 02/10/18 11:13 Dose: Not Given Quetiapine Fumarate (Seroquel) 100 mg PO HS [facility] Rifaximin (Xifaxan) 550 mg PO BID [facility] Sennosides (Senokot) 17.2 mg PO Q12H PRN PRN Reason: Moderate Constipation Sodium Chloride (Ns Flush) 2 ml IV.FLUSH BID [facility] Sodium Chloride (Ns Flush) 2 ml IV.FLUSH PRN PRN PRN Reason: FLUSH AFTER USING IV ACCESS Thiamine HCl (Vitamin B1) 100 mg PO DAILY [facility] Last Admin: 02/10/18 11:14 Dose: Not Given Allergies Allergy/AdvReac Type Severity Reaction Status Date / Time alprazolam [From Xanax] Allergy UNKNOWN Verified 01/30/18 18:11 pregabalin [From Lyrica] Allergy UNKNOWN Verified 01/30/18 18:11 Home Medications Medication Instructions Recorded Confirmed Type aspirin 81 mg PO DAILY 01/30/18 02/10/18 History folic acid 1 mg PO DAILY 01/30/18 02/10/18 History pantoprazole 40 mg PO DAILY 01/30/18 02/10/18 History quetiapine [Seroquel] 100 mg PO HS 01/30/18 02/10/18 History rifaximin [Xifaxan] 550 mg PO BID 01/30/18 02/10/18 History sertraline 100 mg PO DAILY 01/30/18 02/10/18 History Exam Vital signs: Vital Signs 02/10/18 02:39 02/10/18 02:48 02/10/18 03:00 Temperature Pulse Rate 105 H 90 98 H Respiratory Rate 18 16 Blood Pressure 209/85 H 99/56 L Pulse Oximetry 97 98 98 02/10/18 06:43 02/10/18 07:42 02/10/18 09:36 Temperature Pulse Rate 90 83 Respiratory Rate 18 20 Blood Pressure 147/80 H 136/85 Pulse Oximetry 99 02/10/18 13:07 Temperature 97.2 F L Pulse Rate 75 Respiratory Rate 20 Blood Pressure 181/93 H Pulse Oximetry 93 L Intake & Output 02/09/18 02/10/18 02/10/18 18:59 06:59 18:59 Weight 72.575 kg Mental Status Examination Appearance: Disheveled Consciousness: Highly distractible, Clouded Orientation: Person, Place, Date/Time Motor Activity: Abnormal gait Speech: Pressured, Rapid Language: Adequate Fund of Knowledge: Inadequate Attention and Concentration: Easily distracted Memory: Impaired Mood: Oppositional, Irritable, Manic Affect: Irritable Thought Process & Associations: Loose associations, Disorganized Thought Content: Bizarre thinking, Racing thoughts Hallucination Type: Auditory Suicidal Ideation: No Suicidal Plan: No Suicidal Intention: No Homicidal Ideation: No Homicidal Plan: No Homicidal Intention: No Insight: Poor Judgment: Poor Assessment and Plan - Assessment (1) Delirium due to another medical condition Code(s): F05 - Delirium due to known physiological condition Status: Acute (2) Encephalopathy, hepatic Code(s): K72.90 - Hepatic failure, unspecified without coma Status: Acute - Plan Plan: On psychiatric evaluation today the patient is agitated, restrained in 4 points , with tangential speech, disorganized thought process, manic-like, with impaired attention, fluctuation of consciousness, unable to provide any meaningful information for the psychiatric assessment. She is also having active visual hallucinations, she is seen in talking with people that are not present in the room. Current presentation seems to be consistent with delirium most probably related with hepatic encephalopathy, but epileptogenic activity, benzodiazepine withdrawal also needs to be taking in consideration. At this moment the medical investigation and treatment takes priority, but also a major psychiatric illness decompensation is in the differential. Will order Depakote 250 mg twice daily to protect the patient from seizures and also for mood stabilization Restart Seroquel 100 mg at bedtime to help with psychosis Will order EKG QTc interval baseline Will order Haldol 5 mg IM every 8 hours as needed aggressive behavior and agitation Will order a CIWA protocol, due to history of benzodiazepine dependence Consult neurology to help ruling out neurological causes of AMS If current presentation persist beyond medical clearance the patient might benefit of a psychiatric admission Justification for Continued Inpatient Stay: No admission is indicated at the moment, but the patient might need psychiatric admission if current presentation persist after patient is fully medically cleared
--- NOTE | 2018-02-10 15:39 | MB ---
cc: Sai Camacho MD, PhD DATE: 02/10/2018 REASON FOR CONSULTATION: Mental status change. HISTORY OF PRESENT ILLNESS: This is a 63-year-old female who has a history of alcohol abuse, cirrhosis, hepatitis C, depression, rheumatoid arthritis, neuropathy, came to the emergency room with alteration in mental status, very confused, was in restraints. She was in the hospital 10 days ago with seizure and altered mental status. She had an MRI of the brain done 01/30/2018, which showed minimal white matter changes, otherwise unremarkable. At that time, she also had MRA of the brain on 01/30/2018, which was negative except minimal intracranial atherosclerosis. Head CTA at the time was normal. The patient was treated with thiamine at that time. She was found to have an empty bottle of Ativan and tizanidine, felt to have had possibly medication overdose. An EEG performed on 02/01/2018 was normal. CURRENT MEDICATIONS: 1. Tylenol. 2. Aspirin 81 mg daily. 3. Dulcolax. 4. Depakote 250 mg b.i.d. 5. Romazicon p.r.n. 6. Haldol p.r.n. 7. Ativan p.r.n. NEUROLOGIC EXAMINATION: VITAL SIGNS: Blood pressure 181/93, pulse is 75, respirations are 20, temperature 97 degrees. NEUROLOGIC: Higher cortical function: The patient is lethargic. She does not follow any commands. There is no spontaneous speech output. Cranial nerves intact. Pupils equal and reactive. Motor exam: She does not move her extremities to command. She has normal tone. Reflexes are symmetric. IMAGING STUDIES: CT head done today, no acute changes present. LABORATORY DATA: The white count is 6000, hemoglobin 11.4, hematocrit 33.9%, platelet count 95,000. Coagulation studies: PT is 12.3, INR 1.2, APTT 27.5. Sodium is 144, potassium 3.9, chloride 109, CO2 of 22.9, BUN is 14, creatinine 1.21, GFR is 45, glucose is 84, calcium 9.4, AST 45, ALT 35, alkaline phosphatase 118, ammonia 66. Tox screen negative. UA: PH is 5, specific gravity 1.020, protein 30 with 87 hyaline casts and 5 WBCs. IMPRESSION: Probable encephalopathy. She does have an elevated ammonia. Recommend lactulose. We will also repeat the MRI of the brain and EEG to rule out stroke or seizure. Check a vitamin B12 level as well. I also recommend treatment with thiamine because of history of alcohol abuse. Sai Camacho MD, PhD EB/destiny , 03:12 PM , 03:19 PM
[2018-02-10] MEDS: Sodium Chloride 0.9% 2 ML Flush BID IV.FLUSH SCH ×2 (16:24→21:07)
[2018-02-10] MEDS: Divalproex 250 MG DR Tablet PO SCH (21:06)
[2018-02-10] MEDS: rifAXIMin 550 MG Tablet PO SCH (21:07)
[2018-02-10] MEDS: QUEtiapine 100 MG Tablet PO SCH (21:07)
[2018-02-10] MEDS ORDERED: Gadobutrol PF 7.5 MMOL/7.5 ML Vial (for RAD) IV.SIG ONE (21:50)
--- NOTE | 2018-02-10 22:10 | MR ---
EXAM DATE: 02/10/2018 10:01 PM EST AGE/SEX: 63 years / Female INDICATIONS: CVA. CLINICAL DATA: This is the patient's initial encounter. Patient reports that signs and symptoms have been present for 1 day and indicates a pain score of 0/10. MEDICAL/SURGICAL HISTORY: Non-responsive. Non-responsive. [place] [facility] [place]. [facility] [place], [place]. . TECHNIQUE: Multiplanar, multisequence examination of the brain was performed without and with 6.5 ml Omniscan (gadodiamide) contrast as a single exam dose. FINDINGS: Cerebrum: The ventricles are normal for age. No evidence of midline shift, mass lesion, hemorrhage or acute infarction. No extraaxial fluid collections are seen. The pituitary gland and suprasellar cistern are normal in configuration. White Matter: A few small scattered foci of chronic FLAIR signal abnormality again seen in the bilat eral periventricular white matter, unchanged. Posterior Fossa: The cerebellum and brainstem are intact. The 4th ventricle is midline. The cerebel lopontine angle is unremarkable. The cerebellar tonsils are normal in position. Diffusion Imaging: No focal areas of restricted diffusion are seen. No evidence of acute infarction . Extracranial: The visualized portions of the orbits and paranasal sinuses are unremarkable. Post Contrast: No abnormal areas of parenchymal or dural enhancement. No evidence of blood-brain ba rrier breakdown. CONCLUSION: No change or acute intracranial abnormality. There is no acute or subacute infarct demon strated. Electronically signed by: Shashi Cho MD 02/10/2018 10:09 PM EST
[2018-02-11] MEDS: Sod Chloride 0.9% Inj 1,000 ML IV.CONT SCH (06:39)
[2018-02-11 06:57] LABS: Baso % (Auto) 0.6 % (0.0-2.0); Eos # (Auto) 0.2 th/mm3 (0.0-0.4); Eos % (Auto) 4.5 % (0.0-4.0); Hematocrit 33.4 % (35.0-46.0); Hemoglobin 11.3 gm/dL (11.6-15.3); Lymph # (Auto) 0.5 th/mm3 (1.0-4.8); Lymph % (Auto) 12.8 % (9.0-44.0); Mean Corpuscular Hemoglobin 28.1 pg (27.0-34.0); Mean Corpuscular Volume 82.8 fL (80.0-100.0); Mean Platelet Volume 8.4 fL (7.0-11.0); Mono # (Auto) 0.3 th/mm3 (0.0-0.9); Mono % (Auto) 6.9 % (0.0-8.0); Neut # (Auto) 2.7 th/mm3 (1.8-7.7); Neut % (Auto) 75.2 % (16.0-70.0); Platelet Count 71 th/mm3 (150-450); Red Blood Count 4.03 mil/mm3 (4.00-5.30); Red Cell Distribution Width 16.5 % (11.6-17.2); White Blood Count 3.6 th/mm3 (4.0-11.0)
[2018-02-11 07:37] LABS: Calcium 8.5 mg/dL (8.5-10.1); Carbon Dioxide 22.1 meq/L (21.0-32.0); Potassium 3.6 meq/L (3.5-5.1)
--- NOTE | 2018-02-11 08:55 | P.PNNEU ---
Subjective Subjective Comments: more alert and oriented Active Medications: Active Medications Acetaminophen (Tylenol) 650 mg PO Q4H PRN PRN Reason: Temp > 100.4 Al Hydroxide/Mg Hydroxide (Milk Of Magnesia Liq) 30 ml PO Q12H PRN PRN Reason: Mild Constipation Aspirin (Aspirin Chew) 81 mg PO DAILY [facility] Last Admin: 02/10/18 11:11 Dose: Not Given Bisacodyl (Dulcolax Supp) 10 mg RECTAL DAILY PRN PRN Reason: SEVERE CONSITIPATION Divalproex Sodium (Depakote Dr) 250 mg PO BID [facility] Last Admin: 02/10/18 21:06 Dose: Not Given Flumazenil (Romazecon Inj) 0.2 mg IV.PUSH Q1M PRN PRN Reason: OVERSEDATION Folic Acid (Folic Acid) 1 mg PO DAILY [facility] Last Admin: 02/10/18 11:12 Dose: Not Given Haloperidol Lactate (Haldol Inj) 2 mg IM Q6H PRN PRN Reason: agitation/hallucination Last Admin: 02/10/18 09:30 Dose: 2 mg Haloperidol Lactate (Haldol Inj) 1 mg IV.PUSH Q15M PRN PRN Reason: for severe agitation Sodium Chloride (Ns Inj) 1,000 mls @ 100 mls/hr IV.CONT .Q10H [facility] Last Admin: 02/11/18 06:39 Dose: Not Given Lactulose (Lactulose Liq) 30 ml PO BID [facility] Last Admin: 02/10/18 21:06 Dose: Not Given Lorazepam (Ativan) 1 mg PO Q4H PRN PRN Reason: for CIWA 8-10 Lorazepam (Ativan) 2 mg PO Q2H PRN PRN Reason: for CIWA 11-14 Lorazepam (Ativan Inj) 2 mg IV.PUSH Q2H PRN PRN Reason: for CIWA 11-14 Lorazepam (Ativan Inj) 2 mg IV.PUSH Q15M PRN PRN Reason: for CIWA > 20 Lorazepam (Ativan Inj) 1 mg IV.PUSH Q4H PRN PRN Reason: for CIWA 8-10 Lorazepam (Ativan Inj) 2 mg IV.PUSH Q1H PRN PRN Reason: for CIWA 15-20 Losartan Potassium (Cozaar) 50 mg PO DAILY [facility] Last Admin: 02/10/18 11:11 Dose: Not Given Ondansetron HCl (Zofran Inj) 4 mg IV.PUSH Q6H PRN PRN Reason: NAUSEA OR VOMITING Pantoprazole Sodium (Protonix) 40 mg PO DAILY [facility] Last Admin: 02/10/18 11:13 Dose: Not Given Quetiapine Fumarate (Seroquel) 100 mg PO HS [facility] Last Admin: 02/10/18 21:07 Dose: Not Given Rifaximin (Xifaxan) 550 mg PO BID [facility] Last Admin: 02/10/18 21:07 Dose: Not Given Sennosides (Senokot) 17.2 mg PO Q12H PRN PRN Reason: Moderate Constipation Sodium Chloride (Ns Flush) 2 ml IV.FLUSH BID [facility] Last Admin: 02/10/18 21:07 Dose: Not Given Sodium Chloride (Ns Flush) 2 ml IV.FLUSH PRN PRN PRN Reason: FLUSH AFTER USING IV ACCESS Thiamine HCl (Thiamine Inj) 100 mg IM DAILY [facility] Stop: 02/14/18 23:59 Last Admin: 02/10/18 16:25 Dose: 100 mg Allergies/Adverse Reactions: Allergies Allergy/AdvReac Type Severity Reaction Status Date / Time alprazolam [From Xanax] Allergy UNKNOWN Verified 01/30/18 18:11 pregabalin [From Lyrica] Allergy UNKNOWN Verified 01/30/18 18:11 Physical Exam Vital signs: Vital Signs 02/10/18 09:36 02/10/18 13:07 02/10/18 16:00 Temperature 97.2 F L 98.1 F Pulse Rate 75 75 Respiratory Rate 20 20 20 Blood Pressure 136/85 181/93 H 184/82 H Pulse Oximetry 99 93 L 94 L 02/10/18 17:30 02/10/18 20:00 02/11/18 00:00 Temperature 97.9 F 98.1 F Pulse Rate 78 79 Respiratory Rate 17 20 Blood Pressure 169/79 H 175/84 H Pulse Oximetry 94 L 93 L 93 L 02/11/18 04:00 Temperature 98.5 F Pulse Rate 80 Respiratory Rate 18 Blood Pressure 182/74 H Pulse Oximetry 97 Intake & Output 02/10/18 02/11/18 02/11/18 18:59 06:59 18:59 Weight 72.1 kg Other: # Voids 1 Date of Last Bowel Movement 02/10/18 - Routine Neurological Exam alert, oriented times three. speech is fluent and follows commands CN intact MOTOR--5/5 BUE - Urinary Catheter Management Straight Cath placed during this visit: yes Reason for continuing: Not indwelling catheter Insertion date: 02/10/18 Insertion time: 03:00 Objective Radiology Results: MRI brain is normal Laboratory Results - last 24 hr 02/10/18 02/11/18 02/11/18 03:15 06:30 06:30 WBC 3.6 L RBC 4.03 Hgb 11.3 L Hct 33.4 L MCV 82.8 MCH 28.1 MCHC 34.0 RDW 16.5 Plt Count 71 L MPV 8.4 Prelim Diff (Auto) Slide review pending Neut % (Auto) 75.2 H Lymph % (Auto) 12.8 [place] % (Auto) 6.9 Eos % (Auto) 4.5 H Baso % (Auto) 0.6 Neut # (Auto) 2.7 Lymph # (Auto) 0.5 L [place] # (Auto) 0.3 Eos # (Auto) 0.2 Baso # (Auto) 0.0 Differential Comment . Sodium 145 Potassium 3.6 Chloride 111 H Carbon Dioxide 22.1 Anion Gap 12 BUN 11 Creatinine 0.77 Estimated GFR 75 L Random Glucose 58 L Calcium 8.5 D Ammonia Vitamin B12 1019 H 02/11/18 06:33 WBC RBC Hgb Hct MCV MCH MCHC RDW Plt Count MPV Prelim Diff (Auto) Neut % (Auto) Lymph % (Auto) [place] % (Auto) Eos % (Auto) Baso % (Auto) Neut # (Auto) Lymph # (Auto) [place] # (Auto) Eos # (Auto) Baso # (Auto) Differential Comment Sodium Potassium Chloride Carbon Dioxide Anion Gap BUN Creatinine Estimated GFR Random Glucose Calcium Ammonia 22 Vitamin B12 Review/Management - Review/Management Plan: recheck serum ammonia.
[2018-02-11] MEDS: rifAXIMin 550 MG Tablet PO SCH ×2 (09:13→21:41)
[2018-02-11] MEDS: Divalproex 250 MG DR Tablet PO SCH ×2 (09:13→21:41)
[2018-02-11] MEDS: Folic Acid 1 MG Tablet PO SCH (09:13)
[2018-02-11] MEDS: Sodium Chloride 0.9% 2 ML Flush BID IV.FLUSH SCH ×2 (09:14→21:41)
--- NOTE | 2018-02-11 10:16 | P.PNIM ---
Subjective Interval history: Follow-up for end of the mental status Patient is alert more oriented, off restraints, discussed with nursing. Patient is alert, awake, oriented x3. No complaints, denies any fever, chills, nausea, vomiting, abdominal pain or urinary symptoms. Physical Exam Vital signs: Vital Signs 02/10/18 13:07 02/10/18 16:00 02/10/18 17:30 Temperature 97.2 F L 98.1 F Pulse Rate 75 75 Respiratory Rate 20 20 Blood Pressure 181/93 H 184/82 H Pulse Oximetry 93 L 94 L 94 L 02/10/18 20:00 02/11/18 00:00 02/11/18 04:00 Temperature 97.9 F 98.1 F 98.5 F Pulse Rate 78 79 80 Respiratory Rate 17 20 18 Blood Pressure 169/79 H 175/84 H 182/74 H Pulse Oximetry 93 L 93 L 97 02/11/18 08:00 02/11/18 09:19 Temperature 98.7 F Pulse Rate 82 Respiratory Rate 24 Blood Pressure 177/82 H Pulse Oximetry 93 L 95 Intake & Output 02/10/18 02/11/18 02/11/18 18:59 06:59 18:59 Intake Total 1000 / 1000 Balance 1000 / 1000 Weight 72.1 kg Intake: IV 1000 / 1000 NS Inj 1,000 ML @ 100 mls/hr IV 1000 / 1000 .CONT .Q10H [facility] Rx#:[id number] Other: # Voids 1 Date of Last Bowel Movement 02/10/18 Narrative: Not in distress Pupils equal round reactive, pink conjunctivae Regular rate and rhythm Clear breath sounds Abdomen soft nontender No edema Alert, awake, oriented x3, slow mentation but otherwise oriented, no focal deficits. Negative asterixis. Meningeal signs negative. - Urinary Catheter Management Straight Cath placed during this visit: yes Reason for continuing: Not indwelling catheter Insertion date: 02/10/18 Insertion time: 03:00 Results - Labs CBC & Chem 7: 02/11/18 06:30 02/11/18 06:30 Laboratory Results - last 24 hr 02/10/18 02/11/18 02/11/18 03:15 06:30 06:30 WBC 3.6 L RBC 4.03 Hgb 11.3 L Hct 33.4 L MCV 82.8 MCH 28.1 MCHC 34.0 RDW 16.5 Plt Count 71 L MPV 8.4 Prelim Diff (Auto) Slide review pending Neut % (Auto) 75.2 H Lymph % (Auto) 12.8 [place] % (Auto) 6.9 Eos % (Auto) 4.5 H Baso % (Auto) 0.6 Neut # (Auto) 2.7 Lymph # (Auto) 0.5 L [place] # (Auto) 0.3 Eos # (Auto) 0.2 Baso # (Auto) 0.0 WBC Differential . Diff Scan Auto diff confirmed Differential Comment . Sodium 145 Potassium 3.6 Chloride 111 H Carbon Dioxide 22.1 Anion Gap 12 BUN 11 Creatinine 0.77 Estimated GFR 75 L Random Glucose 58 L Calcium 8.5 D Ammonia Vitamin B12 1019 H 02/11/18 06:33 WBC RBC Hgb Hct MCV MCH MCHC RDW Plt Count MPV Prelim Diff (Auto) Neut % (Auto) Lymph % (Auto) [place] % (Auto) Eos % (Auto) Baso % (Auto) Neut # (Auto) Lymph # (Auto) [place] # (Auto) Eos # (Auto) Baso # (Auto) WBC Differential Diff Scan Differential Comment Sodium Potassium Chloride Carbon Dioxide Anion Gap BUN Creatinine Estimated GFR Random Glucose Calcium Ammonia 22 Vitamin B12 - Imaging Impressions Head MRI 02/10/18 00:00 CONCLUSION: No change or acute intracranial abnormality. There is no acute or subacute infarct demonstrated. Head CT 02/10/18 04:29 CONCLUSION: 1. Negative CT Head non contrast. 2. No evidence of acute infarct, hemorrhage, mass or edema. . Chest X-Ray 02/10/18 04:30 CONCLUSION: Stable chest without evidence of acute cardiopulmonary process. Assessment and Plan - Plan This is a 63-year-old female with history of anxiety, depression, hepatitis C, alcohol abuse, cirrhosis, hypertension, rheumatoid arthritis presenting with altered mental status Acute encephalopathy with history of anxiety/ depression, possible hepatic encephalopathy. - CT head and MRI brain unremarkable, no stroke. Neurology consult pending. Psychiatry consult done, patient having visual hallucinations, likely there is a with hepatic encephalopathy versus seizures, rule out benzodiazepine withdrawal. Depakote and Seroquel started on Haldol as needed, CIWA protocol. Ammonia initially 66, now back to normal. 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 Likely from hepatic encephalopathy, EEG pending. Hypertension-continue losartan Acute renal failure-resolved, recheck BMP tomorrow. Stop IVF Hepatic encephalopathy-as above, ammonia now normal. Continue lactulose and rifaximin. Thrombocytopenia-still decreasing, secondary to alcohol abuse, recheck tomorrow. Resume regular diet DVT prophylaxis SCDs Consult physical therapy, discharged back to skilled nursing/rehab tomorrow if remains stable.
[2018-02-11] MEDS: QUEtiapine 100 MG Tablet PO SCH (21:41)
[2018-02-12 06:53] LABS: Baso % (Auto) 0.9 % (0.0-2.0); Eos # (Auto) 0.2 th/mm3 (0.0-0.4); Eos % (Auto) 6.5 % (0.0-4.0); Hematocrit 32.1 % (35.0-46.0); Hemoglobin 10.9 gm/dL (11.6-15.3); Lymph # (Auto) 0.5 th/mm3 (1.0-4.8); Lymph % (Auto) 19.6 % (9.0-44.0); Mean Corpuscular HGB Conc 33.8 % (32.0-36.0); Mean Corpuscular Hemoglobin 28.1 pg (27.0-34.0); Mean Corpuscular Volume 83.2 fL (80.0-100.0); Mean Platelet Volume 8.4 fL (7.0-11.0); Mono # (Auto) 0.2 th/mm3 (0.0-0.9); Mono % (Auto) 6.5 % (0.0-8.0); Neut # (Auto) 1.7 th/mm3 (1.8-7.7); Neut % (Auto) 66.5 % (16.0-70.0); Platelet Count 64 th/mm3 (150-450); Red Blood Count 3.86 mil/mm3 (4.00-5.30); Red Cell Distribution Width 16.5 % (11.6-17.2); White Blood Count 2.6 th/mm3 (4.0-11.0)
[2018-02-12 07:17] LABS: Calcium 8.4 mg/dL (8.5-10.1); Carbon Dioxide 27.5 meq/L (21.0-32.0); Potassium 3.1 meq/L (3.5-5.1)
[2018-02-12 08:21] LABS: Ovalocytes 1+; Platelet Morphology Normal (Normal)
[2018-02-12] MEDS: Divalproex 250 MG DR Tablet PO SCH ×2 (08:35→23:12)
[2018-02-12] MEDS: Sodium Chloride 0.9% 2 ML Flush BID IV.FLUSH SCH ×2 (08:36→23:13)
[2018-02-12] MEDS: Folic Acid 1 MG Tablet PO SCH (08:36)
[2018-02-12] MEDS: rifAXIMin 550 MG Tablet PO SCH ×2 (08:36→23:13)
--- NOTE | 2018-02-12 09:24 | P.DS ---
Date of admission: 02/10/18 05:43 Primary care physician: No Primary Care Physician Anticipated date of discharge: 02/12/18 Brief History from admission: patient is a 63 y/o female with history of a anxiety, Depression, Hepatitis C, Alcohol Abuse, Cirrhosis, HTN, Fibromyalgia, Rheumatoid Arthritis, Polyneuropathy who was brought to ER with altered mental status. information ins limited due to the patient's mental condition. she was very confused and on restraints at the time of my evaluation. she was admitted to this hospital about ten days ago with altered mental status and seizure. she had neurological work-up at the time and was evaluated by neurology during that visit. Patient update on day of discharge: No overnight events, mental status back to baseline. No seizure episodes, no hallucinations. Denies any chest pain or shortness of breath. DS: Diagnosis - Discharge Diagnosis (1) Encephalopathy, hepatic Status: Acute (2) Delirium due to another medical condition Status: Acute DS: Medications - Discharge Medications Prescriptions: divalproex 250 mg PO BID #60 tab lactulose 30 ml PO BID 30 Days #1 bottle DS: Summary Hospital Course: This is a 63-year-old female with history of anxiety, depression, hepatitis C, alcohol abuse, cirrhosis, hypertension, rheumatoid arthritis presenting with altered mental status. The patient was thought to have acute encephalopathy possible delirium secondary to hepatic encephalopathy, rule out seizures. CT head and MRI brain unremarkable, no stroke. Psychiatry consulted, patient having visual hallucinations, likely there is a with hepatic encephalopathy versus seizures, rule out benzodiazepine withdrawal. Depakote started for seizure prophylaxis and mood stabilization. Patient was also started on lactulose. Sertraline was continued. Ammonia was initially 66, improved with lactulose. After a couple of days, patient's mental status went back to normal. Patient also with acute renal failure on admission which resolved with volume resuscitation. Patient's thrombocytopenia also improved, secondary to alcohol use. Monitor. No noted bleeding. Patient is to follow-up with her primary care physician for continued monitoring. She will be discharged after cleared by neurology and if EEG is unremarkable. - Time Spent with Patient Total time spent providing and/or coordinating discharge services: Greater than 30 minutes Exam Vital signs: Vital Signs 02/11/18 12:00 02/11/18 16:00 02/11/18 19:35 Temperature 98.5 F 99 F 98.1 F Pulse Rate 80 84 81 Respiratory Rate 23 23 18 Blood Pressure 189/88 H 168/79 H 138/63 Pulse Oximetry 93 L 94 L 96 02/12/18 00:10 02/12/18 04:30 Temperature 99.0 F 97.9 F Pulse Rate 86 75 Respiratory Rate 18 Blood Pressure 105/52 L 126/61 Pulse Oximetry 95 97 Intake & Output 02/11/18 02/12/18 02/12/18 18:59 06:59 18:59 Intake Total 1480 / 1480 540 / 540 Balance 1480 / 1480 540 / 540 Weight 73 kg Intake: IV 1000 / 1000 NS Inj 1,000 ML @ 100 mls/hr IV 1000 / 1000 .CONT .Q10H [facility] Rx#:[id number] Oral 480 / 480 540 / 540 Other: # Voids 1 # Incontinent Voids 3 Date of Last Bowel Movement 02/11/18 # Bowel Movements 1 # Incontinent Bowel Movements 2 Narrative: Not in distress Pupils equal round reactive, pink conjunctivae Regular rate and rhythm Clear breath sounds Abdomen soft nontender No edema Alert, awake, oriented x3, slow mentation but otherwise oriented, no focal deficits. Negative asterixis. Meningeal signs negative. Results Procedures completed during hospitalization: None Labs on day of discharge: Labs from last 24 hours 02/12/18 02/12/18 02/11/18 06:40 06:40 10:00 WBC 2.6 L RBC 3.86 L Hgb 10.9 L Hct 32.1 L MCV 83.2 MCH 28.1 MCHC 33.8 RDW 16.5 Plt Count 64 L MPV 8.4 Prelim Diff (Auto) Slide review pending Neut % (Auto) 66.5 Lymph % (Auto) 19.6 [place] % (Auto) 6.5 Eos % (Auto) 6.5 H Baso % (Auto) 0.9 Neut # (Auto) 1.7 L Lymph # (Auto) 0.5 L [place] # (Auto) 0.2 Eos # (Auto) 0.2 Baso # (Auto) 0.0 WBC Differential . Diff Scan Auto diff confirmed Differential Comment . Platelet Estimate Low L Platelet Morphology Normal Ovalocytes 1+ H Sodium 146 H Potassium 3.1 L Chloride 111 H Carbon Dioxide 27.5 Anion Gap 8 BUN 11 Creatinine 0.80 Estimated GFR 72 L Random Glucose 105 Calcium 8.4 L Ammonia 17 02/11/18 06:30 WBC RBC Hgb Hct MCV MCH MCHC RDW Plt Count MPV Prelim Diff (Auto) Neut % (Auto) Lymph % (Auto) [place] % (Auto) Eos % (Auto) Baso % (Auto) Neut # (Auto) Lymph # (Auto) [place] # (Auto) Eos # (Auto) Baso # (Auto) WBC Differential . Diff Scan Auto diff confirmed Differential Comment Platelet Estimate Platelet Morphology Ovalocytes Sodium Potassium Chloride Carbon Dioxide Anion Gap BUN Creatinine Estimated GFR Random Glucose Calcium Ammonia - Impressions ITS Impressions Head MRI 02/10/18 00:00 CONCLUSION: No change or acute intracranial abnormality. There is no acute or subacute infarct demonstrated. Head CT 02/10/18 04:29 CONCLUSION: 1. Negative CT Head non contrast. 2. No evidence of acute infarct, hemorrhage, mass or edema. . Chest X-Ray 02/10/18 04:30 CONCLUSION: Stable chest without evidence of acute cardiopulmonary process. Discharge Plan - Discharge Disposition Patient Disposition: /Home Health Service - Discharge Condition Condition: Good - Discharge Order Discharge Orders: Discharge Order (Routine); Ordered 02/12/18 Ordered By: Xiang Viera - Discharge Details Anticipated Discharge Date: 02/12/18 Discharge Comment: d/c after seen and cleared by Neurology and EEG done - Physicians Team Primary Care Provider: Primary Care Physici,No Attending Provider: Xiang Viera Other Providers: Sai Camacho MD, PhD ; Adama Bolton MD
--- NOTE | 2018-02-12 09:25 | P.DCO ---
- Diagnosis (1) Delirium due to another medical condition Status: Acute (2) Encephalopathy, hepatic Status: Acute - Physical Therapy Order: Evaluate and treat - Home Health Nursing Order: Signs/symptoms of disease process, Medication education-adverse effect, Nursing assessment with vital signs - Case Management Consult Case Management Consult-Home Health: Yes - Certification I have seen patient Missy Chinchilla on 02/12/18. My clinical findings support the need for the requested home health care services because: Limited mobility due to disease progression, Need for psychosocial assistance, Impaired cognition/judgement I certify that my clinical findings support that this patient is homebound because: Impaired cognitive ability/safety
--- NOTE | 2018-02-12 19:29 | MG ---
cc: Lc Aguilar MD ELECTROENCEPHALOGRAM NUMBER: [id number] CLINICAL HISTORY: A 63-year-old woman, agitation, yelling, fibromyalgia, syncope. MEDICATIONS: 1. Depakote. 2. Seroquel. DESCRIPTION: The recording shows symmetric diffuse alpha and beta rhythms. The recording is synchronous and symmetric. She is noted to be asleep but does not reach stage II sleep. Then, she does have some sleep spindles which are synchronous and symmetric and does reach stage II sleep about long-term through the recording. Photic stimulation is performed without significant posterior driving. Hyperventilation not performed. IMPRESSION: Normal awake and stage II sleep electroencephalogram. No evidence for a focal or diffuse abnormality. MD JOSE Bran/allyn , 07:01 PM , 07:06 PM
[2018-02-12] MEDS: QUEtiapine 100 MG Tablet PO SCH (23:12)
--- NOTE | 2018-02-13 07:34 | P.PN ---
Subjective Interval history: Follow-up on patient with altered mental status. Patient seen and examined. Patient is stating that she was wants to be discharged home. Patient says she is not gotten any therapy since she has been here. She is upset because she does not have her teeth, glasses or her phone. She denies any fever or chills. She denies any chest pain or shortness of breath. She denies any nausea, vomiting or abdominal pain. Physical Exam Vital signs: Vital Signs 02/12/18 08:00 02/12/18 12:00 02/12/18 16:00 Temperature 97.7 F 98.2 F 98.1 F Pulse Rate 72 75 72 Respiratory Rate 20 20 20 Blood Pressure 128/60 121/59 L 133/62 Pulse Oximetry 93 L 96 95 02/12/18 20:00 02/13/18 00:00 02/13/18 04:00 Temperature 98.9 F 98.2 F 98.4 F Pulse Rate 76 81 78 Respiratory Rate Blood Pressure 125/57 L 162/71 H 139/74 Pulse Oximetry 95 92 L 93 L Intake & Output 02/12/18 02/13/18 02/13/18 18:59 06:59 18:59 Other: # Voids 2 # Incontinent Voids 2 Date of Last Bowel Movement 02/12/18 Narrative: GENERAL: WDWN female patient, INAD. Awake and alert. Appears comfortable sitting up in bed watching TV. SKIN: Warm and dry. No rash. HEENT: Atraumatic. Normocephalic. Pupils equal and round. No scleral icterus. No injection or drainage. No nasal bleeding or discharge. Mucous membranes pink and moist. NECK: Trachea midline. CARDIOVASCULAR: Regular rate and rhythm. RESPIRATORY: No accessory muscle use. Clear to auscultation. Breath sounds equal bilaterally. GASTROINTESTINAL: Abdomen soft, non-tender, nondistended. +BS. MUSCULOSKELETAL: Extremities without clubbing, cyanosis, or edema. No obvious deformities. NEUROLOGICAL: Awake and alert. No obvious cranial nerve deficits. Able to move all extremities spontaneously. Nonfocal. Normal speech. PSYCHIATRIC: Calm and cooperative. - Urinary Catheter Management Straight Cath placed during this visit: yes Reason for continuing: Not indwelling catheter Insertion date: 02/10/18 Insertion time: 03:00 Results - Labs CBC & Chem 7: 02/12/18 06:40 02/12/18 06:40 Laboratory Results - last 24 hr 02/12/18 06:40 WBC Differential . Diff Scan Auto diff confirmed Platelet Estimate Low L Platelet Morphology Normal Ovalocytes 1+ H - Procedures None Assessment and Plan - Assessment (1) Delirium due to another medical condition Code(s): F05 - Delirium due to known physiological condition Status: Acute (2) Encephalopathy, hepatic Code(s): K72.90 - Hepatic failure, unspecified without coma Status: Acute - Plan 63-year-old female with history of anxiety, depression, hepatitis C, alcohol abuse, cirrhosis, hypertension, rheumatoid arthritis presenting with altered mental status Acute encephalopathy with history of anxiety/ depression, possible hepatic encephalopathy, improved CT head and MRI brain unremarkable, no stroke. 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 EEG unremarkable. Cleared for discharge from Neuro standpoint. Patient will need to follow-up in 2 weeks as outpatient. -Psychiatry consult done, patient having visual hallucinations, likely there is a with hepatic encephalopathy versus seizures, rule out benzodiazepine withdrawal. -Depakote and Seroquel started, continue -CIWA protocol -fall and seizure precautions Hypertension -continue losartan Acute renal failure-resolved s/p IVF hydration -Avoid nephrotoxic agents -Continue to monitor Hepatic encephalopathy History of alcohol abuse Liver cirrhosis Hyperammonemia, as above -Treated with Lactulose, ammonia now normal. -Continue lactulose and rifaximin. -Continue on folic acid and thiamine Thrombocytopenia, secondary to alcohol abuse -Platelets appear stable overall -No evidence of active bleeding, continue to monitor DVT prophylaxis SCDs Code Status: Full Discussed Condition With: patient, nursing staff Discharge Planning: Discharge planning in progress. Plan discharge to SNF facility. Case management assisting with ongoing discharge planning.
[2018-02-13] MEDS: Folic Acid 1 MG Tablet PO SCH (11:07)
[2018-02-13] MEDS: Divalproex 250 MG DR Tablet PO SCH ×2 (11:07→21:10)
[2018-02-13] MEDS: rifAXIMin 550 MG Tablet PO SCH ×2 (11:08→21:10)
[2018-02-13] MEDS: Sodium Chloride 0.9% 2 ML Flush BID IV.FLUSH SCH ×2 (11:08→21:10)
[2018-02-13 13:09] LABS: Calcium 8.3 mg/dL (8.5-10.1); Carbon Dioxide 23.3 meq/L (21.0-32.0)
[2018-02-13] MEDS: Acetaminophen 325 MG Tablet PO PRN (18:43)
[2018-02-13] MEDS: QUEtiapine 100 MG Tablet PO SCH (21:10)
[2018-02-14 07:08] LABS: Baso % (Auto) 0.7 % (0.0-2.0); Eos # (Auto) 0.1 th/mm3 (0.0-0.4); Hematocrit 32.2 % (35.0-46.0); Hemoglobin 10.8 gm/dL (11.6-15.3); Lymph # (Auto) 0.5 th/mm3 (1.0-4.8); Lymph % (Auto) 26.8 % (9.0-44.0); Mean Corpuscular HGB Conc 33.4 % (32.0-36.0); Mean Corpuscular Hemoglobin 28.3 pg (27.0-34.0); Mean Corpuscular Volume 84.6 fL (80.0-100.0); Mean Platelet Volume 9.2 fL (7.0-11.0); Mono # (Auto) 0.1 th/mm3 (0.0-0.9); Mono % (Auto) 6.4 % (0.0-8.0); Neut # (Auto) 1.1 th/mm3 (1.8-7.7); Neut % (Auto) 59.1 % (16.0-70.0); Platelet Count 44 th/mm3 (150-450); Red Blood Count 3.81 mil/mm3 (4.00-5.30); Red Cell Distribution Width 15.9 % (11.6-17.2); White Blood Count 1.8 th/mm3 (4.0-11.0)
[2018-02-14 07:31] LABS: Calcium 8.5 mg/dL (8.5-10.1); Carbon Dioxide 29.4 meq/L (21.0-32.0); Potassium 3.1 meq/L (3.5-5.1)
--- NOTE | 2018-02-14 08:04 | P.PN ---
Subjective Interval history: Follow-up on patient with altered mental status. Patient seen and examined. Patient does not voice any acute medical concerns or complaints. She informs me she has 14 steps to navigate to reach her front door. She denies any headache, dizziness, vision changes, N/V, dyspnea, chest pain or abdominal pain. Physical Exam Vital signs: Vital Signs 02/13/18 12:00 02/13/18 16:00 02/13/18 20:00 Temperature 97.8 F 98 F 98.5 F Pulse Rate 74 71 75 Respiratory Rate 20 20 20 Blood Pressure 138/63 131/58 L 147/67 H Pulse Oximetry 95 95 96 02/14/18 00:00 02/14/18 04:00 Temperature 98.3 F 98.3 F Pulse Rate 79 57 L Respiratory Rate 20 20 Blood Pressure 105/54 L 131/62 Pulse Oximetry 95 97 Intake & Output 02/13/18 02/14/18 02/14/18 18:59 06:59 18:59 Weight 98.9 kg Other: # Voids 2 3 # Incontinent Voids 2 # Urine Diapers 1 Date of Last Bowel Movement 02/14/18 # Bowel Movements 1 Narrative: GENERAL: WDWN female patient, INAD. Awake and alert. Appears comfortable sitting up in bedside chair. SKIN: Warm and dry. No rash. HEENT: Atraumatic. Normocephalic. Pupils equal and round. No scleral icterus. No injection or drainage. No nasal bleeding or discharge. Mucous membranes pink and moist. NECK: Trachea midline. CARDIOVASCULAR: Regular rate and rhythm. RESPIRATORY: No accessory muscle use. Clear to auscultation. Breath sounds equal bilaterally. GASTROINTESTINAL: Abdomen soft, non-tender, nondistended. +BS. MUSCULOSKELETAL: Extremities without clubbing, cyanosis, or edema. No obvious deformities. NEUROLOGICAL: Awake and alert. No obvious cranial nerve deficits. Able to move all extremities spontaneously. Nonfocal. Normal speech. PSYCHIATRIC: Calm and cooperative. - Urinary Catheter Management Straight Cath placed during this visit: yes Reason for continuing: Not indwelling catheter Insertion date: 02/10/18 Insertion time: 03:00 Results - Labs CBC & Chem 7: 02/14/18 06:00 02/14/18 06:00 Laboratory Results - last 24 hr 02/13/18 02/13/18 02/14/18 12:40 12:40 06:00 WBC RBC Hgb Hct MCV MCH MCHC RDW Plt Count MPV Prelim Diff (Auto) Neut % (Auto) Lymph % (Auto) Shoshone % (Auto) Eos % (Auto) Baso % (Auto) Neut # (Auto) Lymph # (Auto) Shoshone # (Auto) Eos # (Auto) Baso # (Auto) Differential Comment Sodium 146 H 144 Potassium 3.0 L 3.1 L Chloride 111 H 111 H Carbon Dioxide 23.3 29.4 Anion Gap 12 4 L BUN 9 11 Creatinine 0.88 0.71 Estimated GFR 64 L 83 L Random Glucose 124 H 80 Calcium 8.3 L 8.5 Magnesium 1.6 02/14/18 06:00 WBC 1.8 L RBC 3.81 L Hgb 10.8 L Hct 32.2 L MCV 84.6 MCH 28.3 MCHC 33.4 RDW 15.9 Plt Count 44 L D MPV 9.2 Prelim Diff (Auto) Slide review pending Neut % (Auto) 59.1 Lymph % (Auto) 26.8 Shoshone % (Auto) 6.4 Eos % (Auto) 7.0 H Baso % (Auto) 0.7 Neut # (Auto) 1.1 L Lymph # (Auto) 0.5 L Shoshone # (Auto) 0.1 Eos # (Auto) 0.1 Baso # (Auto) 0.0 Differential Comment . Sodium Potassium Chloride Carbon Dioxide Anion Gap BUN Creatinine Estimated GFR Random Glucose Calcium Magnesium - Procedures None Assessment and Plan - Assessment (1) Delirium due to another medical condition Code(s): F05 - Delirium due to known physiological condition Status: Acute (2) Encephalopathy, hepatic Code(s): K72.90 - Hepatic failure, unspecified without coma Status: Acute - Plan 63-year-old female with history of anxiety, depression, hepatitis C, alcohol abuse, cirrhosis, hypertension, rheumatoid arthritis presenting with altered mental status 02/14 Patient remains stable. VSS. She is afebrile. Needs daily PT to improve her strength and mobility - patient has 14 steps to front door. Acute encephalopathy with history of anxiety/ depression, possible hepatic encephalopathy, resolved CT head and MRI brain unremarkable, no stroke. 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 EEG unremarkable. Cleared for discharge from Neuro standpoint. Patient will need to follow-up in 2 weeks as outpatient. -Psychiatry consult done, patient having visual hallucinations, likely there is a with hepatic encephalopathy versus seizures, rule out benzodiazepine withdrawal. -Depakote and Seroquel started, continue -CIWA protocol -fall and seizure precautions Hypertension -continue losartan Acute renal failure-resolved s/p IVF hydration -Avoid nephrotoxic agents -Continue to monitor Hepatic encephalopathy History of alcohol abuse Liver cirrhosis Hyperammonemia, as above -Treated with Lactulose, ammonia now normal. -Continue lactulose and rifaximin. -Continue on folic acid and thiamine Thrombocytopenia, secondary to alcohol abuse Pancytopenia Neutropenia -Consult hematology, appreciate assistance -No evidence of active bleeding, continue to monitor -If platelets continue to drop we will DC aspirin Hypokalemia K 3.1 despite po repletion yesterday Mag level low normal at 1.6 -Give p.o. mag and potassium repletion -monitor BMP for response DVT prophylaxis SCDs Code Status: Full Discussed Condition With: patient, nursing staff, Dr. Jacinto Discharge Planning: Discharge planning in progress. Plan discharge to SNF facility. Case management assisting with ongoing discharge planning.
[2018-02-14] MEDS ORDERED: Magnesium Oxide 400 MG Tablet PO ONE (08:08)
[2018-02-14 09:00] LABS: Eosinophils 7 % (0-4); Lymphocytes 35 % (9-44); Monocytes 2 % (0-8); Platelet Morphology Normal (Normal)
[2018-02-14] MEDS: Potassium Chloride 10 MEQ ER Capsule PO SCH (09:00)
[2018-02-14] MEDS: Divalproex 250 MG DR Tablet PO SCH ×2 (09:16→21:07)
[2018-02-14] MEDS: Sodium Chloride 0.9% 2 ML Flush BID IV.FLUSH SCH ×2 (09:17→21:08)
[2018-02-14] MEDS: rifAXIMin 550 MG Tablet PO SCH ×2 (09:17→21:07)
[2018-02-14] MEDS: Folic Acid 1 MG Tablet PO SCH (09:17)
[2018-02-14] MEDS: Acetaminophen 325 MG Tablet PO PRN (09:32)
[2018-02-14 09:39] LABS: INR 1.2 Ratio
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
--- NOTE | 2018-02-14 19:31 | CT ---
EXAM DATE: 02/14/2018 7:10 PM EST AGE/SEX: 63 years / Female INDICATIONS: Pancytopenia; evaluate for cirrhosis. Patient complains of bilateral lower abdominal p ain. CLINICAL DATA: This is the patient's initial encounter. Patient reports that signs and symptoms have been present for 1 day and indicates a pain score of 5/10. MEDICAL/SURGICAL HISTORY: Hepatitis C. Renal failure, chronic. Hypertension. ETOH abuse . R ight shoulder replacement RADIATION DOSE: 13.87 CTDI (mGy) COMPARISON: POI, MR THORACIC SPINE W AND W/O CONTRAST, 11/01/2014. . TECHNIQUE: Multiple contiguous axial images were obtained through the abdomen. Images were obtained using multiple row detector helical technique. Using automated exposure control and adjustment of the mA and/or kV according to patient size, radiation dose was kept as low as reasonably achievable to o btain optimal diagnostic quality images. DICOM format image data is available electronically for rev iew and comparison. FINDINGS: Nodular liver contour typical of cirrhosis. No focal hepatic lesion seen on these noncontrast images. No ductal dilatation. Stones are suspected in the gallbladder. No perceptible acute inflammatory gissell nges. There is no ascites. Main portal vein is approximately 18 mm in diameter. Spleen measures 18 cm craniocaudal. Gastric and gastroesophageal varices are present. Also probably a splenorenal shunt. There is a 2.0 x 2.3 x 2.7 cm circumscribed low-density mass along the posterior margin of the pancre atic head. This is most likely a cystic. Noncontrast appearance of the adrenal glands within normal limits. 3 mm nonobstructing stone of the u pper pole the right kidney. There is an elongated calcification in the left renal hilum that is proba kanchan vascular. No obstruction or inflammatory changes are seen of the gastrointestinal tract. Normal appendix. A solid appearing left adnexal mass is seen measuring 3.3 cm. Right adnexal region and uterus within normal limits. No free fluid or free air. No lymphadenopathy. Abdominal aorta is atherosclerotic. No aneurysm seen. No acute bony abnormalities are demonstrated. Degenerative disc disease with vacuum phenomenon at L5/ S1. CONCLUSION: 1. Cirrhosis with portosystemic collaterals and splenomegaly. No ascites. No perceptible focal hepat ic or splenic lesion. 2. There is an intermediate attenuation mass in the left adnexal region, probably solid. A subserosa l uterine fibroid and ovarian neoplasm are both in the differential. Nonemergent pelvic ultrasound be helpful in further characterizing. 3. Circumscribed pancreatic head mass. Further attempted characterization with a nonemergent contras t-enhanced abdomen study is recommended, preferably MRI 4. Atherosclerotic aorta. No aneurysm. Electronically signed by: Shashi Cho MD 02/14/2018 7:30 PM EST
[2018-02-14] MEDS: QUEtiapine 100 MG Tablet PO SCH (21:07)
[2018-02-15] MEDS: Acetaminophen 325 MG Tablet PO PRN (01:17)
[2018-02-15 06:50] LABS: Baso % (Auto) 0.6 % (0.0-2.0); Eos # (Auto) 0.1 th/mm3 (0.0-0.4); Eos % (Auto) 6.9 % (0.0-4.0); Hematocrit 29.8 % (35.0-46.0); Lymph # (Auto) 0.4 th/mm3 (1.0-4.8); Lymph % (Auto) 19.3 % (9.0-44.0); Mean Corpuscular HGB Conc 33.6 % (32.0-36.0); Mean Corpuscular Hemoglobin 28.5 pg (27.0-34.0); Mean Corpuscular Volume 84.9 fL (80.0-100.0); Mean Platelet Volume 9.3 fL (7.0-11.0); Mono # (Auto) 0.1 th/mm3 (0.0-0.9); Mono % (Auto) 5.6 % (0.0-8.0); Neut # (Auto) 1.3 th/mm3 (1.8-7.7); Neut % (Auto) 67.6 % (16.0-70.0); Platelet Count 40 th/mm3 (150-450); Red Blood Count 3.51 mil/mm3 (4.00-5.30); Red Cell Distribution Width 16.4 % (11.6-17.2); White Blood Count 1.9 th/mm3 (4.0-11.0)
[2018-02-15 06:54] LABS: Anion Gap 7 meq/L (5-15); Blood Urea Nitrogen 13 mg/dL (7-18); Calcium 8.5 mg/dL (8.5-10.1); Carbon Dioxide 24.9 meq/L (21.0-32.0); Chloride 110 meq/L (98-107); Glomerular Filtration Rate 83 mL/min (>89); Glucose,Random 81 mg/dL (74-106); Potassium 3.7 meq/L (3.5-5.1); Sodium 142 meq/L (136-145)
--- NOTE | 2018-02-15 07:26 | P.PN ---
Subjective Interval history: Follow-up on patient with altered mental status. Patient seen and examined. Patient says she feels well. She is hopeful she will be discharged today. She does not voice any acute medical complaints or concerns. DW nursing staff, no adverse events noted overnight. Physical Exam Vital signs: Vital Signs 02/14/18 08:00 02/14/18 12:00 02/14/18 16:00 Temperature 97.9 F 97.7 F 97.9 F Pulse Rate 68 72 73 Respiratory Rate 20 20 20 Blood Pressure 149/66 H 137/61 143/66 H Pulse Oximetry 94 L 96 98 02/14/18 20:00 02/15/18 00:00 02/15/18 02:11 Temperature 97.6 F 98.3 F Pulse Rate 83 75 Respiratory Rate 20 18 17 Blood Pressure 157/74 H 138/65 Pulse Oximetry 98 95 02/15/18 04:00 Temperature 97.9 F Pulse Rate 70 Respiratory Rate 18 Blood Pressure 115/59 L Pulse Oximetry 98 Intake & Output 02/14/18 02/15/18 02/15/18 18:59 06:59 18:59 Other: # Voids 3 1 1 # Incontinent Voids 1 Date of Last Bowel Movement 02/14/18 02/14/18 # Bowel Movements 1 Narrative: GENERAL: WDWN female patient, INAD. Awake and alert. Appears comfortable. Ambulating around her room with walker. SKIN: Warm and dry. No rash. HEENT: Atraumatic. Normocephalic. Pupils equal and round. No scleral icterus. No injection or drainage. No nasal bleeding or discharge. Mucous membranes pink and moist. NECK: Trachea midline. CARDIOVASCULAR: Regular rate and rhythm. RESPIRATORY: No accessory muscle use. Clear to auscultation. Breath sounds equal bilaterally. GASTROINTESTINAL: Abdomen soft, non-tender, nondistended. +BS. MUSCULOSKELETAL: Extremities without clubbing, cyanosis, or edema. No obvious deformities. NEUROLOGICAL: Awake and alert. No obvious cranial nerve deficits. Able to move all extremities spontaneously. Nonfocal. Normal speech. PSYCHIATRIC: Calm and cooperative. - Urinary Catheter Management Straight Cath placed during this visit: yes Reason for continuing: Not indwelling catheter Insertion date: 02/10/18 Insertion time: 03:00 Results - Labs CBC & Chem 7: 02/15/18 05:45 02/15/18 05:45 Laboratory Results - last 24 hr 02/14/18 02/14/18 02/14/18 06:00 06:00 09:00 WBC RBC Hgb Hct MCV MCH MCHC RDW Plt Count MPV Prelim Diff (Auto) Neut % (Auto) Lymph % (Auto) Wallace % (Auto) Eos % (Auto) Baso % (Auto) Neut # (Auto) Lymph # (Auto) Wallace # (Auto) Eos # (Auto) Baso # (Auto) WBC Differential Manual diff final Seg Neuts % (Manual) 55 Lymphocytes % (Manual) 35 Monocytes % (Manual) 2 Eosinophils % (Manual) 7 H Basophils % (Manual) 1 Abs Neuts (Manual) 1.0 L Differential Comment Platelet Estimate Low L Platelet Morphology Normal PT 12.0 H INR 1.2 Sodium 144 Potassium 3.1 L Chloride 111 H Carbon Dioxide 29.4 Anion Gap 4 L BUN 11 Creatinine 0.71 Estimated GFR 83 L Random Glucose 80 Calcium 8.5 Rheumatoid Factor Scrn Rheumatoid Factor Titer 02/15/18 02/15/18 05:45 05:45 WBC 1.9 L RBC 3.51 L Hgb 10.0 L Hct 29.8 L MCV 84.9 MCH 28.5 MCHC 33.6 RDW 16.4 Plt Count 40 L MPV 9.3 Prelim Diff (Auto) Slide review pending Neut % (Auto) 67.6 Lymph % (Auto) 19.3 Wallace % (Auto) 5.6 Eos % (Auto) 6.9 H Baso % (Auto) 0.6 Neut # (Auto) 1.3 L Lymph # (Auto) 0.4 L Wallace # (Auto) 0.1 Eos # (Auto) 0.1 Baso # (Auto) 0.0 WBC Differential Seg Neuts % (Manual) Lymphocytes % (Manual) Monocytes % (Manual) Eosinophils % (Manual) Basophils % (Manual) Abs Neuts (Manual) Differential Comment . Platelet Estimate Platelet Morphology PT INR Sodium 142 Potassium 3.7 Chloride 110 H Carbon Dioxide 24.9 Anion Gap 7 BUN 13 Creatinine 0.71 Estimated GFR 83 L Random Glucose 81 Calcium 8.5 Rheumatoid Factor Scrn Negative Rheumatoid Factor Titer Not Reportable - Imaging Impressions Abdomen/Pelvis CT 02/14/18 00:00 CONCLUSION: 1. Cirrhosis with portosystemic collaterals and splenomegaly. No ascites. No perceptible focal hepatic or splenic lesion. 2. There is an intermediate attenuation mass in the left adnexal region, probably solid. A subserosal uterine fibroid and ovarian neoplasm are both in the differential. Nonemergent pelvic ultrasound be helpful in further characterizing. 3. Circumscribed pancreatic head mass. Further attempted characterization with a nonemergent contrast-enhanced abdomen study is recommended, preferably MRI 4. Atherosclerotic aorta. No aneurysm. - Procedures None Assessment and Plan - Assessment (1) Delirium due to another medical condition Code(s): F05 - Delirium due to known physiological condition Status: Acute (2) Encephalopathy, hepatic Code(s): K72.90 - Hepatic failure, unspecified without coma Status: Acute - Plan 63-year-old female with history of anxiety, depression, hepatitis C, alcohol abuse, cirrhosis, hypertension, rheumatoid arthritis presenting with altered mental status 02/15 No significant change. Patient remains stable. VSS. She is afebrile. Up with therapy today, plan to work on stairs. DW nursing staff, no adverse events noted overnight. Acute encephalopathy with history of anxiety/ depression, possible hepatic encephalopathy, resolved CT head and MRI brain unremarkable, no stroke. 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 EEG unremarkable. Cleared for discharge from Neuro standpoint. Patient will need to follow-up in 2 weeks as outpatient. -Psychiatry consult done, patient having visual hallucinations, likely there is a with hepatic encephalopathy versus seizures, rule out benzodiazepine withdrawal. -Depakote and Seroquel started, continue -CIWA protocol -fall and seizure precautions Hypertension -continue losartan Acute renal failure-resolved s/p IVF hydration -Avoid nephrotoxic agents -Continue to monitor Hepatic encephalopathy History of alcohol abuse Liver cirrhosis Hyperammonemia, as above -Treated with Lactulose, ammonia now normal. -Continue lactulose and rifaximin. -Continue on folic acid and thiamine Thrombocytopenia, secondary to alcohol abuse Pancytopenia Neutropenia -Hematology following, appreciate assistance. Platelets have been continuously dropping slowly. D/C Aspirin. -No evidence of active bleeding, continue to monitor Hypokalemia -resolved s/p repletion DVT prophylaxis SCDs Code Status: Full Discussed Condition With: patient, nursing staff, Dr. Jacinto Discharge Planning: Discharge planning in progress. Plan discharge to SNF facility. Case management assisting with ongoing discharge planning.
[2018-02-15 09:03] LABS: Eosinophils 7 % (0-4); Lymphocytes 17 % (9-44); Monocytes 5 % (0-8); Platelet Morphology Normal (Normal)
--- NOTE | 2018-02-15 09:21 | P.PNPSY ---
Subjective Remarks: The patient was seen today for psychiatric reevaluation. Patient is found taking a shower, was out of the bathroom she is interviewed by me. The patient is calm, cooperative, pleasant. Reports feeling much better today, but pain on pain. Patient is requesting to be discharged back home, she feels frustrated because she does not have her teeth with her and she does not have her cell phone. She reports to be in a good mood, denies hopelessness, helplessness, she denies anhedonia, denies suicidal enemas ideation, she denies visual and auditory hallucinations at the moment. The patient is logical, coherent and relevant at this moment. Oriented x3, no attention deficit, no fluctuation of consciousness present. Taking her medications, no significant side effects. Mental Status Examination Appearance: Appropriate Consciousness: Alert, Clouded Orientation: x4 Motor Activity: Normal gait Speech: Pressured, Rapid Language: Adequate Fund of Knowledge: Adequate Attention and Concentration: Adequate Memory: Unremarkable Mood: Appropriate, Irritable, Manic Affect: Appropriate Thought Process & Associations: Intact Thought Content: Appropriate Hallucination Type: None Delusion Type: None Suicidal Ideation: No Suicidal Plan: No Suicidal Intention: No Homicidal Ideation: No Homicidal Plan: No Homicidal Intention: No Insight: Fair Judgment: Impulsive Assessment and Plan - Assessment (1) Delirium due to another medical condition Code(s): F05 - Delirium due to known physiological condition Status: Acute (2) Encephalopathy, hepatic Code(s): K72.90 - Hepatic failure, unspecified without coma Status: Acute - Plan Plan: On my psychiatric evaluation today the patient seems to be doing much better than the last time I saw her. The patient is calm, cooperative, pleasant, logical, coherent and relevant. Oriented x3, no attention deficit, no fluctuation of consciousness, no gross cognitive impairment present. There is no signs of louis, psychosis, depression at this moment. The patient denies suicidal enemas ideation, she denies visual and auditory hallucinations. Continue current psychotropic regimen. Patient does not meet criteria for involuntary psychiatric admission. Justification for Continued Inpatient Stay: No criteria for admission in psychiatry
[2018-02-15] MEDS: Divalproex 250 MG DR Tablet PO SCH ×2 (10:16→21:59)
[2018-02-15] MEDS: rifAXIMin 550 MG Tablet PO SCH ×2 (10:16→21:59)
[2018-02-15] MEDS: Folic Acid 1 MG Tablet PO SCH (10:16)
[2018-02-15] MEDS: Potassium Chloride 10 MEQ ER Capsule PO SCH (10:17)
[2018-02-15] MEDS: Sodium Chloride 0.9% 2 ML Flush BID IV.FLUSH SCH ×2 (10:20→21:59)
--- NOTE | 2018-02-15 12:27 | P.PNONC ---
Subjective Interval history: Patient sitting on the side of the bed, she states she is waiting for her walking papers. She reports to me a history of low platelets. She states she sees a bingo worker regularly and "knows what to do, I have lactulose at home because high ammonia can make you confused" Objective Vital Signs/Intake & Output: Vital Signs 02/14/18 12:00 02/14/18 16:00 02/14/18 20:00 Temperature 97.7 F 97.9 F 97.6 F Pulse Rate 72 73 83 Respiratory Rate 20 20 20 Blood Pressure 137/61 143/66 H 157/74 H Pulse Oximetry 96 98 98 02/15/18 00:00 02/15/18 02:11 02/15/18 04:00 Temperature 98.3 F 97.9 F Pulse Rate 75 70 Respiratory Rate 18 17 18 Blood Pressure 138/65 115/59 L Pulse Oximetry 95 98 02/15/18 08:00 Temperature 97.2 F L Pulse Rate 75 Respiratory Rate 18 Blood Pressure 139/69 Pulse Oximetry 98 Intake & Output 02/14/18 02/15/18 02/15/18 18:59 06:59 18:59 Other: # Voids 3 1 1 # Incontinent Voids 1 Date of Last Bowel Movement 02/14/18 02/14/18 # Bowel Movements 1 Result Diagrams: 02/15/18 05:45 02/15/18 05:45 Laboratory Results: Laboratory Results - last 24 hr 02/15/18 02/15/18 02/15/18 05:45 05:45 05:45 WBC 1.9 L RBC 3.51 L Hgb 10.0 L Hct 29.8 L MCV 84.9 MCH 28.5 MCHC 33.6 RDW 16.4 Plt Count 40 L MPV 9.3 Prelim Diff (Auto) Slide review pending Neut % (Auto) 67.6 Lymph % (Auto) 19.3 Wilkin % (Auto) 5.6 Eos % (Auto) 6.9 H Baso % (Auto) 0.6 Neut # (Auto) 1.3 L Lymph # (Auto) 0.4 L [place] # (Auto) 0.1 Eos # (Auto) 0.1 Baso # (Auto) 0.0 WBC Differential Manual diff final Seg Neuts % (Manual) 65 Band Neuts % (Manual) 5 Lymphocytes % (Manual) 17 Monocytes % (Manual) 5 Eosinophils % (Manual) 7 H Basophils % (Manual) 1 Abs Neuts (Manual) 1.3 L Differential Comment . Platelet Estimate Low L Platelet Morphology Normal Sodium 142 Potassium 3.7 Chloride 110 H Carbon Dioxide 24.9 Anion Gap 7 BUN 13 Creatinine 0.71 Estimated GFR 83 L Random Glucose 81 Calcium 8.5 Rheumatoid Factor Scrn Negative Rheumatoid Factor Titer Not Reportable MAYDA Screen Neg Imaging Studies: Impressions Abdomen/Pelvis CT 02/14/18 00:00 CONCLUSION: 1. Cirrhosis with portosystemic collaterals and splenomegaly. No ascites. No perceptible focal hepatic or splenic lesion. 2. There is an intermediate attenuation mass in the left adnexal region, probably solid. A subserosal uterine fibroid and ovarian neoplasm are both in the differential. Nonemergent pelvic ultrasound be helpful in further characterizing. 3. Circumscribed pancreatic head mass. Further attempted characterization with a nonemergent contrast-enhanced abdomen study is recommended, preferably MRI 4. Atherosclerotic aorta. No aneurysm. Medications: Active Medications Generic Name Dose Route Start Last Admin Trade Name Freq PRN Reason Stop Dose Admin Acetaminophen 650 mg 02/13/18 17:59 02/15/18 01:17 Tylenol PO 650 mg Q4H PRN Administration PAIN 1-10 OR TEMP > 100.4 F Aspirin 81 mg 02/10/18 09:00 02/15/18 10:15 Aspirin Chew PO 81 mg DAILY MITA Administration Diphenhydramine HCl 25 mg 02/13/18 17:59 02/14/18 21:07 Benadryl PO 25 mg HS PRN Administration INSOMNIA Divalproex Sodium 250 mg 02/10/18 21:00 02/15/18 10:[address] PO 250 mg BID MITA Administration Folic Acid 1 mg 02/10/18 09:00 02/15/18 10:16 Folic Acid PO 1 mg DAILY MITA Administration Haloperidol Lactate 2 mg 02/10/18 09:00 02/10/18 09:30 Haldol Inj IM 2 mg Q6H PRN Administration agitation/hallucination Lactulose 30 ml 02/10/18 21:00 02/15/18 10:20 Lactulose Liq PO Not Given BID MITA Losartan Potassium 50 mg 02/10/18 09:00 02/15/18 10:17 Cozaar PO 50 mg DAILY MITA Administration Pantoprazole Sodium 40 mg 02/10/18 09:00 02/15/18 10:17 Protonix PO 40 mg DAILY MITA Administration Potassium Chloride 20 meq 02/14/18 09:00 02/15/18 10:17 Kcl PO 02/17/18 08:59 20 meq DAILY MITA Administration Quetiapine Fumarate 100 mg 02/10/18 21:00 02/14/18 21:07 Seroquel PO 100 mg HS MITA Administration Rifaximin 550 mg 02/10/18 21:00 02/15/18 10:16 Xifaxan PO 550 mg BID MITA Administration Sodium Chloride 2 ml 02/10/18 09:00 02/15/18 10:20 Ns Flush IV.FLUSH 2 ml BID MITA Administration Sodium Chloride 2 ml 02/10/18 06:03 02/13/18 21:10 Ns Flush IV.FLUSH 2 ml PRN PRN Administration FLUSH AFTER USING IV ACCESS Thiamine HCl 100 mg 02/14/18 21:00 02/15/18 10:17 Vitamin B1 PO 100 mg BID MITA Administration Objective Remarks: GENERAL: Chronically ill-appearing elderly female patient, looks older than stated age, in no acute distress. SKIN: Warm and dry. HEAD: Normocephalic. EYES: No scleral icterus. No injection or drainage. NECK: Supple, trachea midline. CARDIOVASCULAR: Regular rate and rhythm without murmurs. RESPIRATORY: Breath sounds equal bilaterally. No accessory muscle use. GASTROINTESTINAL: Abdomen large, soft, non-tender, nondistended. EXTREMITIES: No cyanosis, or edema. Chronic discoloration to bilateral lower extremities. MUSCULOSKELETAL: Adequate muscle tone. NEUROLOGICAL: No obvious focal deficit. Awake, alert, and oriented x3. PSYCHIATRIC: Appropriate mood and affect; insight and judgment normal. Assessment/Plan - Plan The patient is a 63-year-old female with a history of depression, early dementia , alcohol abuse, hepatitis C, cirrhosis, seizures, and rheumatoid arthritis. She was brought to the emergency room because of an altered mental state. She was found to have an elevated serum ammonia of 66 and pancytopenia. Hematology was consulted for low platelet count. Recommendations: 1. Pancytopenia, WBC 1.9, ANC 1.3, hemoglobin 10, platelet count 40,000 today. Reviewing her previous hospitalization on 01/30/2018 her platelet count was 55 ,000. Recommend holding aspirin for decreasing platelet count. Likely secondary to cirrhosis with hypersplenism. CT abdomen revealed cirrhosis with portosystemic collaterals and splenomegaly. 2. CT abdomen revealed cirrhosis with portosystemic collaterals and splenomegaly. Mass in the left adnexal region, probably solid, nonemergent pelvic ultrasound could be helpful in further characterizing. Circumscribed pancreatic head mass, further attempted characterization with a nonemergent contrast-enhanced abdominal study is recommended, preferably MRI. Atherosclerotic aorta, no aneurysm.Will obtain MR abdomen with contrast and pelvic us. 3. Awaiting peripheral blood smear, will call path.
--- NOTE | 2018-02-15 17:05 | US ---
EXAM DATE: 02/15/2018 4:46 PM EST AGE/SEX: 63 years / Female INDICATIONS: Left adnexal mass seen on CT. CLINICAL DATA: This is the patient's subsequent encounter. Patient reports that signs and symptoms h ave been present for 1 day and indicates a pain score of 0/10. MEDICAL/SURGICAL HISTORY: . Hepatitis C. Renal failure, chronic. Hypertension. ETOH abuse . . Right shoulder replacement COMPARISON: [facility] – [place], CT ABDOMEN & PELVIS W/O CONTRAST, 02/14/2018. . MEASUREMENTS: Uterus:__5.5 x 2.0 x 2.9 cm Endometrial Stripe:__2 mm Right Ovary:__ 1.3 x 1.1 x 1.0 cm Left Ovary:__ . Not visualized. FINDINGS: Uterus: The myometrium has homogeneous echotexture without mass. Endometrial Stripe: The endometrial stripe displays homogeneous echotexture. Right Ovary: Ovary contains no mass or significant cystic lesion. Left Ovary: Not visualized. Fluid: Trace free fluid. Other: None. CONCLUSION: 1. No identified sonographic correlate for the mass noted on CT examination. 2. This mass would be best evaluated electively with outpatient pelvic MRI with contrast Electronically signed by: Shashi Andujar MD 02/15/2018 5:03 PM EST
[2018-02-15] MEDS: QUEtiapine 100 MG Tablet PO SCH (21:59)
--- NOTE | 2018-02-16 07:30 | P.PN ---
Subjective Interval history: Follow-up on patient with altered mental status. Patient seen and examined. Patient says she did very well with physical therapy today. She says that she has been allowed to walk around the room unassisted. Patient tells me that she takes Tylenol 3 for chronic neck pain from pain management physician. This was verified on the [employer] database. She denies any nausea or vomiting. She denies any headaches, dizziness, lightheadedness, numbness or tingling. She denies any chest pain or shortness of breath. She is tolerating a diet. Physical Exam Vital signs: Vital Signs 02/15/18 08:00 02/15/18 12:00 02/15/18 16:00 Temperature 97.2 F L 97.1 F L 97.4 F L Pulse Rate 75 83 78 Respiratory Rate 18 19 19 Blood Pressure 139/69 148/65 H 121/57 L Pulse Oximetry 98 96 99 02/15/18 20:00 02/16/18 00:00 02/16/18 04:00 Temperature 98.0 F 97.9 F 98.1 F Pulse Rate 85 78 76 Respiratory Rate 18 20 20 Blood Pressure 157/67 H 137/60 129/59 L Pulse Oximetry 97 95 93 L Intake & Output 02/15/18 02/16/18 02/16/18 18:59 06:59 18:59 Weight 74.7 kg Other: # Voids 1 2 Date of Last Bowel Movement 02/14/18 02/15/18 Narrative: GENERAL: WDWN female patient, INAD. Awake and alert. Appears comfortable lying in bed watching TV. SKIN: Warm and dry. No rash. HEENT: Atraumatic. Normocephalic. Pupils equal and round. No scleral icterus. No injection or drainage. No nasal bleeding or discharge. Mucous membranes pink and moist. NECK: Trachea midline. CARDIOVASCULAR: Regular rate and rhythm. RESPIRATORY: No accessory muscle use. Clear to auscultation. Breath sounds equal bilaterally. GASTROINTESTINAL: Abdomen soft, non-tender, nondistended. +BS. MUSCULOSKELETAL: Extremities without clubbing, cyanosis, or edema. No obvious deformities. NEUROLOGICAL: Awake and alert. No obvious cranial nerve deficits. Able to move all extremities spontaneously. Nonfocal. Normal speech. PSYCHIATRIC: Calm and cooperative. - Urinary Catheter Management Straight Cath placed during this visit: yes Reason for continuing: Not indwelling catheter Insertion date: 02/10/18 Insertion time: 03:00 Results - Labs CBC & Chem 7: 02/16/18 11:05 02/16/18 11:05 Laboratory Results - last 24 hr 02/15/18 02/15/18 02/15/18 05:45 05:45 05:45 WBC Differential Manual diff final Seg Neuts % (Manual) 65 Band Neuts % (Manual) 5 Lymphocytes % (Manual) 17 Monocytes % (Manual) 5 Eosinophils % (Manual) 7 H Basophils % (Manual) 1 Abs Neuts (Manual) 1.3 L Platelet Estimate Low L Platelet Morphology Normal Smear Path Review MAYDA Screen Neg - Imaging Impressions Pelvis Ultrasound 02/15/18 00:00 CONCLUSION: 1. No identified sonographic correlate for the mass noted on CT examination. 2. This mass would be best evaluated electively with outpatient pelvic MRI with contrast - Procedures None Assessment and Plan - Assessment (1) Delirium due to another medical condition Code(s): F05 - Delirium due to known physiological condition Status: Acute (2) Encephalopathy, hepatic Code(s): K72.90 - Hepatic failure, unspecified without coma Status: Acute - Plan 63-year-old female with history of anxiety, depression, hepatitis C, alcohol abuse, cirrhosis, hypertension, rheumatoid arthritis presenting with altered mental status Acute encephalopathy with history of anxiety/ depression, possible hepatic encephalopathy, resolved CT head and MRI brain unremarkable, no stroke. 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 EEG unremarkable. Cleared for discharge from Neuro standpoint. Patient will need to follow-up in 2 weeks as outpatient. -Psychiatry consult done, patient having visual hallucinations, likely there is a with hepatic encephalopathy versus seizures, rule out benzodiazepine withdrawal. Psych reevaluation -patient much improved, no signs of louis, psychosis or depression. Continue current psychotropic regimen. -Depakote and Seroquel started, continue -CIWA protocol -no signs of withdrawal -fall and seizure precautions -Continue with PT Hypertension -continue losartan Acute renal failure-resolved s/p IVF hydration -Avoid nephrotoxic agents -Continue to monitor Hepatic encephalopathy History of alcohol abuse Liver cirrhosis Hyperammonemia, as above -Treated with Lactulose, ammonia now normal. -Continue lactulose and rifaximin. -Continue on folic acid and thiamine Thrombocytopenia, secondary to alcohol abuse Pancytopenia Neutropenia CT the abdomen/pelvis revealed cirrhosis with portosystemic collaterals and splenomegaly. Mass in the left adnexal region, probably solid, nonemergent pelvic ultrasound could be helpful in further characterizing. Circumscribed pancreatic head mass, further attempted characterization with a nonemergent contrast-enhanced abdominal study is recommended, preferably MRI. Atherosclerotic aorta, no aneurysm. Pelvic US unremarkable MRI abdomen reveals well-circumscribed simple cystic 2 cm mass just medial to the the uncinate interposed between the proximal superior mesenteric vessels and the IVC. No suspicious parenchymal pancreatic findings. -Hematology following, appreciate assistance. Platelets have been continuously dropping slowly. Aspirin discontinued. -No evidence of active bleeding, continue to monitor Hypokalemia -resolved s/p repletion DVT prophylaxis SCDs Code Status: Full Discussed Condition With: Patient, nursing staff, Dr. Jacinto Discharge Planning: Discharge planning in progress. Plan to discharge in the next 24 hours to home with home health care.
[2018-02-16] MEDS ORDERED: Gadobutrol PF 7.5 MMOL/7.5 ML Vial (for RAD) IV.SIG ONE (09:00)
--- NOTE | 2018-02-16 09:02 | MR ---
EXAM DATE: 02/16/2018 8:52 AM EST AGE/SEX: 63 years / Female INDICATIONS: . Abdominal mass seen on CT. CLINICAL DATA: This is the patient's subsequent encounter. Patient reports that signs and symptoms h ave been present for 1 week and indicates a pain score of 3/10. MEDICAL/SURGICAL HISTORY: Hypertension. Hysterectomy. orthopedic surgeries. COMPARISON: [facility] – [place], CT ABDOMEN & PELVIS W/O CONTRAST, 02/14/2018. . TECHNIQUE: Multiplanar, multisequence images of the abdomen were obtained prior to and following adm inistration of 7.5 ml Gadavist (gadobutrol) contrast as a single exam dose with dynamic multiphase te chnique. FINDINGS: Liver: Markedly cirrhotic liver appearance. No evidence of discrete liver mass. No biliary ductal dil atation. Gallbladder: Multiple gallstones present. Spleen: Markedly enlarged without focal mass Pancreas: Well-circumscribed simple cystic 2 cm mass just medial to the uncinate interposed between t he proximal superior mesenteric vessels and the IVC. No suspicious parenchymal pancreatic findings. Adrenals: The adrenal glands appear normal. Kidneys: Both kidneys appear normal with symmetric nephrograms and no focal parenchymal abnormalities . There is no hydronephrosis on either side. Retroperitoneum: Otherwise unremarkable Post Contrast: No abnormal areas of enhancement seen. CONCLUSION: 1. Cirrhosis and prominent stigmata of portal hypertension. 2. Gallstones 3. Pancreatic cyst Electronically signed by: Shashi Andujar MD 02/16/2018 9:00 AM EST
[2018-02-16] MEDS: Folic Acid 1 MG Tablet PO SCH (09:31)
[2018-02-16] MEDS: Potassium Chloride 10 MEQ ER Capsule PO SCH (09:31)
[2018-02-16] MEDS: Divalproex 250 MG DR Tablet PO SCH ×2 (09:32→22:08)
[2018-02-16] MEDS: rifAXIMin 550 MG Tablet PO SCH ×2 (09:32→22:07)
[2018-02-16] MEDS: Sodium Chloride 0.9% 2 ML Flush BID IV.FLUSH SCH ×2 (09:38→22:08)
[2018-02-16 12:58] LABS: Baso % (Auto) 0.4 % (0.0-2.0); Eos # (Auto) 0.1 th/mm3 (0.0-0.4); Eos % (Auto) 6.6 % (0.0-4.0); Hematocrit 27.8 % (35.0-46.0); Hemoglobin 9.3 gm/dL (11.6-15.3); Lymph # (Auto) 0.4 th/mm3 (1.0-4.8); Lymph % (Auto) 17.8 % (9.0-44.0); Mean Corpuscular HGB Conc 33.4 % (32.0-36.0); Mean Corpuscular Hemoglobin 28.6 pg (27.0-34.0); Mean Corpuscular Volume 85.6 fL (80.0-100.0); Mean Platelet Volume 9.8 fL (7.0-11.0); Mono # (Auto) 0.2 th/mm3 (0.0-0.9); Mono % (Auto) 8.7 % (0.0-8.0); Neut # (Auto) 1.3 th/mm3 (1.8-7.7); Neut % (Auto) 66.5 % (16.0-70.0); Platelet Count 38 th/mm3 (150-450); Red Blood Count 3.25 mil/mm3 (4.00-5.30); Red Cell Distribution Width 16.3 % (11.6-17.2)
[2018-02-16 13:23] LABS: Calcium 8.3 mg/dL (8.5-10.1); Carbon Dioxide 27.8 meq/L (21.0-32.0); Potassium 3.5 meq/L (3.5-5.1)
[2018-02-16 13:51] LABS: Platelet Morphology Normal (Normal)
[2018-02-16] MEDS ORDERED: LORazepam 0.5 MG Tablet PO PRN (14:01)
[2018-02-16] MEDS: Acetaminophen/Codeine 300/30 MG Tablet PO PRN (18:33)
[2018-02-16] MEDS: Nystatin 100,000 UNITS/GM Powder 15 GM Bottle TOPICAL SCH ×2 (19:34→22:08)
--- NOTE | 2018-02-16 21:35 | P.PNONC ---
Subjective Interval history: No complaints. Looking forward to going home. Objective Vital Signs/Intake & Output: Vital Signs 02/16/18 00:00 02/16/18 04:00 02/16/18 12:00 Temperature 97.9 F 98.1 F 97.5 F L Pulse Rate 78 76 86 Respiratory Rate 20 20 13 Blood Pressure 137/60 129/59 L 124/59 L Pulse Oximetry 95 93 L 95 02/16/18 16:00 02/16/18 20:00 Temperature 97.5 F L 97.7 F Pulse Rate 84 86 Respiratory Rate 20 20 Blood Pressure 128/58 L 126/64 Pulse Oximetry 94 L 96 Intake & Output 02/16/18 02/16/18 02/17/18 06:59 18:59 06:59 Weight 74.7 kg Other: # Voids 2 Date of Last Bowel Movement 02/15/18 02/15/18 # Bowel Movements 1 # Incontinent Bowel Movements 2 Result Diagrams: 02/16/18 11:05 02/16/18 11:05 Laboratory Results: Laboratory Results - last 24 hr 02/16/18 02/16/18 02/16/18 11:05 11:05 12:00 WBC 2.0 L RBC 3.25 L Hgb 9.3 L Hct 27.8 L MCV 85.6 MCH 28.6 MCHC 33.4 RDW 16.3 Plt Count 38 L MPV 9.8 Prelim Diff (Auto) Slide review pending Neut % (Auto) 66.5 Lymph % (Auto) 17.8 [place] % (Auto) 8.7 H Eos % (Auto) 6.6 H Baso % (Auto) 0.4 Neut # (Auto) 1.3 L Lymph # (Auto) 0.4 L [place] # (Auto) 0.2 Eos # (Auto) 0.1 Baso # (Auto) 0.0 WBC Differential . Diff Scan Auto diff confirmed Differential Comment . Platelet Estimate Low L Platelet Morphology Normal Sodium 144 Potassium 3.5 Chloride 111 H Carbon Dioxide 27.8 Anion Gap 5 BUN 12 Creatinine 0.75 Estimated GFR 78 L POC Glucose 133 H Random Glucose 103 Calcium 8.3 L 02/16/18 17:57 WBC RBC Hgb Hct MCV MCH MCHC RDW Plt Count MPV Prelim Diff (Auto) Neut % (Auto) Lymph % (Auto) [place] % (Auto) Eos % (Auto) Baso % (Auto) Neut # (Auto) Lymph # (Auto) [place] # (Auto) Eos # (Auto) Baso # (Auto) WBC Differential Diff Scan Differential Comment Platelet Estimate Platelet Morphology Sodium Potassium Chloride Carbon Dioxide Anion Gap BUN Creatinine Estimated GFR POC Glucose 122 H Random Glucose Calcium Imaging Studies: Impressions Abdomen MRI 02/16/18 00:00 CONCLUSION: 1. Cirrhosis and prominent stigmata of portal hypertension. 2. Gallstones 3. Pancreatic cyst Medications: Active Medications Generic Name Dose Route Start Last Admin Trade Name Freq PRN Reason Stop Dose Admin Acetaminophen 650 mg 02/13/18 17:59 02/15/18 01:17 Tylenol PO 650 mg Q4H PRN Administration PAIN 1-10 OR TEMP > 100.4 F Acetaminophen/Codeine Phosphate 1 tab 02/16/18 14:02 02/16/18 18:33 Tylenol W/Cod #3 PO 1 tab Q8H PRN Administration PAIN SCALE 6 TO 10 Aspirin 81 mg 02/10/18 09:00 02/15/18 10:15 Aspirin Chew PO 81 mg DAILY MITA Administration Diphenhydramine HCl 25 mg 02/13/18 17:59 02/14/18 21:07 Benadryl PO 25 mg HS PRN Administration INSOMNIA Divalproex Sodium 250 mg 02/10/18 21:00 02/16/18 09:[address] PO 250 mg BID MITA Administration Folic Acid 1 mg 02/10/18 09:00 02/16/18 09:31 Folic Acid PO 1 mg DAILY MITA Administration Haloperidol Lactate 2 mg 02/10/18 09:00 02/10/18 09:30 Haldol Inj IM 2 mg Q6H PRN Administration agitation/hallucination Lactulose 30 ml 02/10/18 21:00 02/16/18 12:30 Lactulose Liq PO Not Given BID MITA Lorazepam 1 mg 02/10/18 11:10 02/15/18 13:55 Ativan PO 1 mg Q4H PRN Administration for CIWA 8-10 Lorazepam 0.5 mg 02/16/18 14:01 02/16/18 14:46 Ativan PO 0.5 mg Q12H PRN Administration ANXIETY Losartan Potassium 50 mg 02/10/18 09:00 02/16/18 09:32 Cozaar PO 50 mg DAILY MITA Administration Nystatin 1 applicatio 02/16/18 18:00 02/16/18 19:34 Mycostatin Powder TOPICAL 1 applicatio QID MITA Administration Pantoprazole Sodium 40 mg 02/10/18 09:00 02/16/18 09:31 Protonix PO 40 mg DAILY MITA Administration Potassium Chloride 20 meq 02/14/18 09:00 02/16/18 09:31 Kcl PO 02/17/18 08:59 20 meq DAILY MITA Administration Quetiapine Fumarate 100 mg 02/10/18 21:00 02/15/18 21:59 Seroquel PO 100 mg HS MITA Administration Rifaximin 550 mg 02/10/18 21:00 02/16/18 09:32 Xifaxan PO 550 mg BID MITA Administration Sodium Chloride 2 ml 02/10/18 09:00 02/16/18 09:38 Ns Flush IV.FLUSH 2 ml BID MITA Administration Sodium Chloride 2 ml 02/10/18 06:03 02/13/18 21:10 Ns Flush IV.FLUSH 2 ml PRN PRN Administration FLUSH AFTER USING IV ACCESS Thiamine HCl 100 mg 02/14/18 21:00 02/16/18 09:32 Vitamin B1 PO 100 mg BID MITA Administration Objective Remarks: GENERAL: Appears older than stated age SKIN: Warm and dry. HEAD: Normocephalic. EYES: No scleral icterus. No injection or drainage. NECK: Supple, trachea midline. No JVD or lymphadenopathy. LYMPHATIC: No adenopathy. CARDIOVASCULAR: Regular rate and rhythm without murmurs. RESPIRATORY: Breath sounds equal bilaterally. No accessory muscle use. GASTROINTESTINAL:? Spleen palpable 2 or 3 cm below left costal margin, abdomen soft EXTREMITIES: No cyanosis, or edema. MUSCULOSKELETAL: Poor muscle tone NEUROLOGICAL: No obvious focal deficit. Awake, alert, and oriented x3. PSYCHIATRIC: Appropriate mood and affect; insight and judgment normal. Assessment/Plan - Plan The patient is a 63-year-old female with a history of depression, early dementia , alcohol abuse, hepatitis C, cirrhosis, seizures, and rheumatoid arthritis. She was brought to the emergency room because of an altered mental state. She was found to have an elevated serum ammonia of 66 and pancytopenia. Hematology was consulted for low platelet count. Recommendations: 1: Thrombocytopenia is persistent. I do not think there is anything to do. Would avoid aspirin. I believe the thrombocytopenia is due to the splenomegaly. If it significantly worsens one could look for diseases such as ITP or drug-induced thrombocytopenia. 2: MRI of the abdomen reviewed and discussed with radiology. There is no evidence of a pancreatic cancer. She has severe cirrhosis. 3: Pelvic ultrasound shows no mass. The left ovary is absent and the patient tells me she had an operation with removal of an ovary. She believes her uterus was removed but it was not. In speaking with radiology it is unlikely that she has a pelvic mass and the most likely explanation would be a uterine fibroid. In order to further evaluate this she would require a MRI of the pelvis with contrast. I offered her the opportunity of doing this. She does not want to. I gave her a copy of her CAT scan of the abdomen and pelvis as well as the pelvic ultrasound and told her that she should follow-up with her physician to make sure that she does not have any significant pathology in the pelvis. 4: She tells me she is being discharged tomorrow morning. At this point I have nothing further to add and she should follow-up with her outpatient physician and have her platelets checked several times over the next month. I suspect that her thrombocytopenia will stabilize probably around 40-60,000 but I am not sure.
[2018-02-16] MEDS: QUEtiapine 100 MG Tablet PO SCH (22:07)
[2018-02-17] MEDS: Acetaminophen/Codeine 300/30 MG Tablet PO PRN (04:07)
--- NOTE | 2018-02-17 07:37 | P.DS ---
Date of admission: 02/10/18 05:43 Primary care physician: No Primary Care Physician Attending physician on discharge: Kendall Dennis Anticipated date of discharge: 02/12/18 Brief History from admission: patient is a 63 y/o female with history of a anxiety, Depression, Hepatitis C, Alcohol Abuse, Cirrhosis, HTN, Fibromyalgia, Rheumatoid Arthritis, Polyneuropathy who was brought to ER with altered mental status. information ins limited due to the patient's mental condition. she was very confused and on restraints at the time of my evaluation. she was admitted to this hospital about ten days ago with altered mental status and seizure. she had neurological work-up at the time and was evaluated by neurology during that visit. Patient update on day of discharge: Patient seen and examined. Patient is looking forward to being discharged home. She denies any acute medical complaints or concerns. She is asking if she can have a few days of Tylenol 3 to give her time to follow-up with her pain management physician. She denies any fever or chills. Denies any chest pain or shortness of breath. Denies any nausea, vomiting or abdominal pain. No overnight events noted. No hallucinations. No seizure episodes. DS: Diagnosis - Discharge Diagnosis (1) Delirium due to another medical condition Status: Acute (2) Encephalopathy, hepatic Status: Acute DS: Medications - Discharge Medications Prescriptions: acetaminophen-codeine 1 tab PO Q8H PRN #9 tab PRN Reason: Pain Scale 6 To 10 divalproex 250 mg PO BID #60 tab lactulose 30 ml PO BID 30 Days #1 bottle nystatin [Nystop] 1 applicatio TOPICAL QID 30 Days g potassium chloride 20 meq PO DAILY #3 cap quetiapine [Seroquel] 100 mg PO HS PRN #5 tab PRN Reason: Insomnia DS: Summary Hospital Course: This is a 63-year-old female with history of anxiety, depression, hepatitis C, alcohol abuse, cirrhosis, hypertension, rheumatoid arthritis presenting with altered mental status. The patient was thought to have acute encephalopathy possible delirium secondary to hepatic encephalopathy, rule out seizures. CT head and MRI brain unremarkable, no stroke. Psychiatry consulted, patient having visual hallucinations, likely there is a with hepatic encephalopathy versus seizures, rule out benzodiazepine withdrawal. Depakote started for seizure prophylaxis and mood stabilization. Patient was also started on lactulose. Sertraline was continued. Ammonia was initially 66, improved with lactulose. After a couple of days, patient's mental status went back to normal. Patient also with acute renal failure on admission which resolved with volume resuscitation. Patient's EEG was unremarkable and she was cleared for discharge by neurology. Plan initially was for patient to be discharged to a retirement facility but she was turned down by several facilities. Patient 's mentation cleared. She progressed with physical therapy. Patient was seen in consultation by hematology for progressive downward trend in platelets felt likely to be due to splenomegaly. CT of abdomen pelvis was obtained which revealed concern for pancreatic mass however follow-up MRI was remarkable for well circumscribed simple cystic 2 cm mass with no suspicious parenchymal pancreatic findings. Pelvic ultrasound was also done which showed no mass. She was discharged home with home health care. Case management assisted with discharge planning. Patient to follow-up with her PCP as an outpatient. She will need serial CBCs to monitor her thrombocytopenia. - Time Spent with Patient Total time spent providing and/or coordinating discharge services: Greater than 30 minutes Exam Vital signs: Vital Signs 02/16/18 12:00 02/16/18 16:00 02/16/18 20:00 Temperature 97.5 F L 97.5 F L 97.7 F Pulse Rate 86 84 86 Respiratory Rate 13 20 20 Blood Pressure 124/59 L 128/58 L 126/64 Pulse Oximetry 95 94 L 96 02/17/18 00:00 02/17/18 04:00 Temperature 98.3 F 98.3 F Pulse Rate 95 H 84 Respiratory Rate 20 20 Blood Pressure 114/56 L 123/59 L Pulse Oximetry 95 95 Intake & Output 02/16/18 02/17/18 02/17/18 18:59 06:59 18:59 Weight 76.5 kg Other: # Voids 3 Date of Last Bowel Movement 02/15/18 # Bowel Movements 1 # Incontinent Bowel Movements 2 Narrative: GENERAL: WDWN female patient, INAD. Awake and alert. Appears comfortable sitting up in bed. SKIN: Warm and dry. No rash. HEENT: Atraumatic. Normocephalic. Pupils equal and round. No scleral icterus. No injection or drainage. No nasal bleeding or discharge. Mucous membranes pink and moist. NECK: Trachea midline. CARDIOVASCULAR: Regular rate and rhythm. RESPIRATORY: No accessory muscle use. Clear to auscultation. Breath sounds equal bilaterally. GASTROINTESTINAL: Abdomen soft, non-tender, nondistended. +BS. MUSCULOSKELETAL: Extremities without clubbing, cyanosis, or edema. No obvious deformities. NEUROLOGICAL: Awake and alert. No obvious cranial nerve deficits. Able to move all extremities spontaneously. Nonfocal. Normal speech. PSYCHIATRIC: Calm and cooperative. Results Procedures completed during hospitalization: None Labs on day of discharge: Labs from last 24 hours 02/16/18 02/16/18 02/16/18 17:57 12:00 11:05 WBC RBC Hgb Hct MCV MCH MCHC RDW Plt Count MPV Prelim Diff (Auto) Neut % (Auto) Lymph % (Auto) [place] % (Auto) Eos % (Auto) Baso % (Auto) Neut # (Auto) Lymph # (Auto) [place] # (Auto) Eos # (Auto) Baso # (Auto) WBC Differential Diff Scan Differential Comment Platelet Estimate Platelet Morphology Sodium 144 Potassium 3.5 Chloride 111 H Carbon Dioxide 27.8 Anion Gap 5 BUN 12 Creatinine 0.75 Estimated GFR 78 L POC Glucose 122 H 133 H Random Glucose 103 Calcium 8.3 L 02/16/18 11:05 WBC 2.0 L RBC 3.25 L Hgb 9.3 L Hct 27.8 L MCV 85.6 MCH 28.6 MCHC 33.4 RDW 16.3 Plt Count 38 L MPV 9.8 Prelim Diff (Auto) Slide review pending Neut % (Auto) 66.5 Lymph % (Auto) 17.8 [place] % (Auto) 8.7 H Eos % (Auto) 6.6 H Baso % (Auto) 0.4 Neut # (Auto) 1.3 L Lymph # (Auto) 0.4 L [place] # (Auto) 0.2 Eos # (Auto) 0.1 Baso # (Auto) 0.0 WBC Differential . Diff Scan Auto diff confirmed Differential Comment . Platelet Estimate Low L Platelet Morphology Normal Sodium Potassium Chloride Carbon Dioxide Anion Gap BUN Creatinine Estimated GFR POC Glucose Random Glucose Calcium - Impressions ITS Impressions Head MRI 02/10/18 00:00 CONCLUSION: No change or acute intracranial abnormality. There is no acute or subacute infarct demonstrated. Head CT 02/10/18 04:29 CONCLUSION: 1. Negative CT Head non contrast. 2. No evidence of acute infarct, hemorrhage, mass or edema. . Chest X-Ray 02/10/18 04:30 CONCLUSION: Stable chest without evidence of acute cardiopulmonary process. Abdomen/Pelvis CT 02/14/18 00:00 CONCLUSION: 1. Cirrhosis with portosystemic collaterals and splenomegaly. No ascites. No perceptible focal hepatic or splenic lesion. 2. There is an intermediate attenuation mass in the left adnexal region, probably solid. A subserosal uterine fibroid and ovarian neoplasm are both in the differential. Nonemergent pelvic ultrasound be helpful in further characterizing. 3. Circumscribed pancreatic head mass. Further attempted characterization with a nonemergent contrast-enhanced abdomen study is recommended, preferably MRI 4. Atherosclerotic aorta. No aneurysm. Pelvis Ultrasound 02/15/18 00:00 CONCLUSION: 1. No identified sonographic correlate for the mass noted on CT examination. 2. This mass would be best evaluated electively with outpatient pelvic MRI with contrast Abdomen MRI 02/16/18 00:00 CONCLUSION: 1. Cirrhosis and prominent stigmata of portal hypertension. 2. Gallstones 3. Pancreatic cyst Discharge Plan - Discharge Disposition Patient Disposition: /Home Health Service - Discharge Condition Condition: Good - Discharge Order Discharge Orders: Discharge Order (Routine); Ordered 02/12/18 Ordered By: Xiang Viera - Discharge Details Anticipated Discharge Date: 02/12/18 - Physicians Team Primary Care Provider: Primary Care Anitra,No Attending Provider: Kendall Dennis Other Providers: Sai Camacho MD, PhD ; Adama Bolton MD ; [facility], [place] ; Alec Domingo MD ; [employer]urance
[2018-02-17] MEDS: Nystatin 100,000 UNITS/GM Powder 15 GM Bottle TOPICAL SCH (08:36)
[2018-02-17] MEDS: Divalproex 250 MG DR Tablet PO SCH (08:36)
[2018-02-17] MEDS: Folic Acid 1 MG Tablet PO SCH (08:36)
[2018-02-17] MEDS: rifAXIMin 550 MG Tablet PO SCH (08:36)
[2018-02-17] MEDS: Sodium Chloride 0.9% 2 ML Flush BID IV.FLUSH SCH (11:03)
== END 2018-02-17 09:38 | disposition home health service (06) ==
LOC: NEPC 02:19 → NEDA 05:43 → NEDH 09:18 → N05 12:48
PROVIDERS: ADMIT Internal Medicine; ATTEND Internal Medicine